=== PATIENT | male | born 1965 | race Caucasian/White ===

== ENCOUNTER 2017-03-11 07:36 | Emergency (ER) | payer MEDICAID, OTHER ==
[2017-03-11] MEDS ORDERED: HYDROmorphone* 1 MG/ML 1 ML SYR IV ONE (08:04)
[2017-03-11] MEDS ORDERED: NS 0.9% 1000 ML* 2,000 ML IV ONE (08:04)
[2017-03-11] MEDS ORDERED: LORazepam INJ* 2 MG/ML 1 ML VIAL IV PUSH ONE (08:09)
--- NOTE | 2017-03-11 09:08 | RAD ---
HISTORY: Left arm pain and swelling COMPARISONS: None VIEWS: 4, Frontal internal rotation, external rotation, outlet, and axillary views of the left shoulder FINDINGS: BONE DENSITY: Normal. BONES: There is no displaced fracture. JOINTS: There is no arthropathy. ALIGNMENT: There is no dislocation. SOFT TISSUES: Unremarkable. OTHER FINDINGS: None. IMPRESSION: NO ACUTE OSSEOUS INJURY. IF SYMPTOMS PERSIST, RECOMMEND REPEAT IMAGING.
--- NOTE | 2017-03-11 09:09 | RAD ---
INDICATION: Left elbow pain. Chest ecchymosis. Left chest wall injury. COMPARISON: May 13, 2015 TECHNIQUE: PA and lateral dual-energy views were obtained. FINDINGS: Bones/Soft Tissues: There are no acute bony findings. Cardiomediastinal: The cardiomediastinal silhouette is normal. Lungs: There are no infiltrates. Pleura: There are no pleural effusions. Other: None IMPRESSION: NO ACTIVE DISEASE.
--- NOTE | 2017-03-11 09:10 | RAD ---
HISTORY: Painful, swollen left elbow COMPARISONS: None VIEWS: 3, Frontal, lateral, and oblique views of the left elbow FINDINGS: BONE DENSITY: Normal. BONES: There is no displaced fracture. JOINTS: There is no arthropathy. There is no posterior supracondylar fat pad to suggest a joint effusion. ALIGNMENT: There is no dislocation. SOFT TISSUES: Unremarkable. OTHER FINDINGS: None. IMPRESSION: NO ACUTE OSSEOUS INJURY. IF SYMPTOMS PERSIST, RECOMMEND REPEAT IMAGING.
--- NOTE | 2017-03-11 09:11 | RAD ---
HISTORY: Left arm pain and swelling COMPARISONS: None VIEWS: 2, Frontal and lateral views of the left forearm FINDINGS: BONE DENSITY: Normal. BONES: There is no displaced fracture. JOINTS: There is no arthropathy. ALIGNMENT: There is no dislocation. SOFT TISSUES: Unremarkable. OTHER FINDINGS: None. IMPRESSION: NO ACUTE OSSEOUS INJURY. IF SYMPTOMS PERSIST, RECOMMEND REPEAT IMAGING.
--- NOTE | 2017-03-11 09:11 | RAD ---
HISTORY: Left arm pain and swelling COMPARISONS: None VIEWS: 2, Frontal internal rotation and external rotation views of the left humerus FINDINGS: BONE DENSITY: Normal. BONES: There is no displaced fracture. JOINTS: There is no arthropathy. ALIGNMENT: There is no dislocation. SOFT TISSUES: Unremarkable. OTHER FINDINGS: None. IMPRESSION: NO ACUTE OSSEOUS INJURY. IF SYMPTOMS PERSIST, RECOMMEND REPEAT IMAGING.
[2017-03-11 09:19] LABS: Hematocrit 32 % (42-52); Hemoglobin 10.6 g/dl (14.0-18.0); Mean Corpuscular HGB Conc 34 g/dl (31-36); Mean Corpuscular Hemoglobin 34 pg (27-31); Mean Corpuscular Volume 103 fL (80-94); Mean Platelet Volume 8 um3 (7.4-10.4); Red Blood Count 3.07 10^6/ul (4.0-5.4); Red Cell Distribution Width 15 % (10.5-15); White Blood Count 4.7 10^3/ul (3.5-10.8)
[2017-03-11 09:20] LABS: Comments Flag Yes
[2017-03-11 09:23] LABS: Add Diff/Slide Review? Slide Review Added
[2017-03-11 09:31] LABS: Albumin 3.7 g/dL (3.2-5.2); C Reactive Protein 1.29 mg/L (< 5.00); Calcium 8.7 mg/dL (8.6-10.3); EGFR African American 205.5 (>60); EGFR Non-African American 159.8 (>60); Globulin 4.7 g/dL (2-4); Potassium 3.9 mmol/L (3.5-5.0); Total Bilirubin 2.8 mg/dL (0.2-1.0); Total Protein 8.4 g/dL (6.4-8.9)
[2017-03-11] MEDS ORDERED: HYDROmorphone* 1 MG/ML 1 ML SYR IV SLOW PU ONE (09:57)
--- NOTE | 2017-03-11 10:32 | RAD ---
HISTORY: Left upper extremity swelling COMPARISONS: None relevant TECHNIQUE: Multiple transverse and longitudinal ultrasound images were obtained of the left upper extremity from the level of the internal jugular vein inferiorly through to the infra-cubital veins using grayscale, color Doppler, and spectral Doppler imaging with and without compression and with augmentation. Comparison images were obtained of the contralateral internal jugular vein and subclavian vein. FINDINGS: The study was limited by patient pain and inability to tolerate examination. VEINS: The venous system of the left upper extremity is compressible throughout its course, with normal flow on color Doppler imaging and normal response to augmentation on spectral Doppler imaging. SOFT TISSUES: There is a large heterogeneously hyperechoic fluid collection of the proximal left arm consistent with large hematoma measuring approximately 11.5 x 4.2 x 5.3 cm in size. OTHER FINDINGS: Arterial flow is noted within the left brachial artery. IMPRESSION: 1. NO LEFT UPPER EXTREMITY DEEP VEIN THROMBOSIS. 2. LARGE HEMATOMA OF THE PROXIMAL LEFT ARM
[2017-03-11 12:45] LABS: Erythrocyte Sed Rate 62 mm/Hr (0-20)
[2017-03-11 14:30] VITALS: BP 101/61
[2017-03-11] MEDS ORDERED: HYDROcodone/ACETAMIN 5-325 MG* 1 TAB PO ONE (15:13)
--- NOTE | 2017-03-11 15:48 | ED ---
Montez Massey Auryana, scribed for John Carrillo MD on 03/11/17 at 0811 . Upper Extremity Pain - HPI Summary HPI Summary: 51 year old male presents with LUE pain starting this morning. He states that his left arm is also swollen, numb (thumb and index finger on left arm), and has ecchymosis. He states that the pain is constant but then becomes much worse intermittently. He reports that he doesn't know what happened. He denies any chest pain or recent falls. He denies any recent falls. Patient is right handed. His last drink was a few days ago. PMHx is significant for IVDA ( "years ago"). Social history is significant for tobacco and alcohol abuse but denies any drug use. - History of Current Complaint Chief Complaint: EDExtremityUpper Stated Complaint: LT ARM PAIN Time Seen by Provider: 03/11/17 07:53 Hx Obtained From: Patient Mechanism Of Injury: Unknown Onset/Duration: Started Hours Ago - this morning, Still Present Timing: Constant Severity Initially: Mild Severity Currently: Mild Pain Location: Arm - left Aggravating Factor(s): Movement Associated Signs & Symptoms: Positive: Swelling, Bruising, Numbness/Tingling Related History: Dominant Hand Right - Allergies/Home Medications Allergies/Adverse Reactions: Allergies Allergy/AdvReac Type Severity Reaction Status Date / Time No Known Allergies Allergy Verified 12/27/15 17:04 PMH/Surg Hx/FS Hx/Imm Hx Endocrine/Hematology History: Denies: Hx Diabetes Cardiovascular History: Denies: Hx Congestive Heart Failure, Hx Hypertension Respiratory History: Reports: Hx Pneumonia GI History: Reports: Other GI Disorders - abdominal trauma Denies: Hx Cirrhosis, Hx Crohn's Disease, Hx Diverticulosis, Hx Gall Bladder Disease, Hx Gastroesophageal Reflux Disease, Hx Gastrointestinal Bleed, Hx Hiatal Hernia, Hx Irritable Bowel, Hx Jaundice, Hx Obstructive Bowel, Hx Ileostomy, Hx Pyloric Stenosis, Hx Ulcer History: Denies: Hx Renal Disease Sensory History: Reports: Hx Contacts or Glasses - reading Opthamlomology History: Reports: Hx Contacts or Glasses - reading Neurological History: Reports: Hx Seizures - 2-3 seizures in the past year Psychiatric History: Reports: Hx Anxiety, Hx Depression, Hx Panic Disorder, Hx Inpatient Treatment, Hx Community Mental Health Tx, Hx Suicide Attempt Denies: Hx Attention Deficit Hyperactivity Disorder, Hx Eating Disorder, Hx Post Traumatic Stress Disorder, Hx Schizophrenia, Hx Bipolar Disorder, Hx of Violent Episodes Against Others, Other Psychiatric Issues/Disorders Comment Only: Hx Substance Abuse - etoh - Surgical History Surgery Procedure, Year, and Place: Bladder repair 1999' Hx Anesthesia Reactions: No Infectious Disease History: No Infectious Disease History: Reports: Hx Hepatitis, History Other Infectious Disease - Hep C Denies: Hx Clostridium Difficile, Hx Human Immunodeficiency Virus (HIV), Hx of Known/Suspected MRSA, Hx Shingles, Hx Tuberculosis, Hx Known/Suspected VRE, Hx Known/Suspected VRSA, Traveled Outside the [place] in Last 30 Days - Family History Known Family History: Positive: Unknown, Diabetes - Social History Occupation: Unemployed Lives: Alone Alcohol Use: Daily Alcohol Amount: states 4-6 shots every 2-3 hours Hx Substance Use: No - states not IVDA recently Substance Use Type: Reports: Heroin Substance Use Comment - Amount & Last Used: uses suboxone Hx Tobacco Use: Yes Smoking Status (MU): Heavy Every Day Tobacco Smoker Type: Cigarettes Have You Smoked in the Last Year: Yes Review of Systems Constitutional: Negative Negative: Fever Eyes: Negative ENT: Negative Cardiovascular: Negative Respiratory: Negative Gastrointestinal: Negative Genitourinary: Negative Positive: Myalgia - left arm , Decreased ROM - with pain - left arm , Edema - left arm Positive: Bruising - of the left arm ecchymosis Positive: Weakness - motor weakness of left arm Psychological: Normal All Other Systems Reviewed And Are Negative: Yes Physical Exam - Summary Physical Exam Summary: PE smells etoh The patient is well-nourished in no acute distress. Smells of ETOH. The skin is warm and dry and skin color reflects adequate perfusion. HEENT: The head is normocephalic and atraumatic- no evidence of head trauma, moeller signs or raccoon signs. The pupils are equal and reactive. The conjunctivae are clear and without drainage. Nares are patent and without drainage. Mouth reveals moist mucous membranes and the throat is without erythema and exudate. The external ears are intact. The internal ears were not visualized. Neck is supple with full range of motion and non-tender. There are no carotid bruits. There is no neck vein distension. Respiratory: Chest is non-tender. Lungs are clear to auscultation and breath sounds are symmetrical and equal. Cardiovascular: Heart is regular rate and rhythm. There is no murmur or rub auscultated. There is no peripheral edema and pulses are symmetrical and equal. Abdomen: The abdomen is soft and non-tender. There are normal bowel sounds heard in all four quadrants and there is no organomegaly palpated. Musculoskeletal: There is no back pain noted. Lower extremities are non-tender with full range of motion. There is good capillary refill. There is no peripheral edema or calf tenderness elicited. Pain with rotation of the wrist. Marked eccyhmosis on the radial aspect of the left arm extending from the mid forearm to the axilla. Tender to palpation with good pulses distally. Decreased movement of fingers of the left arm but no motor weakness noted - good capillary refill. Pain with pronation and supination of elbow but no reproducible pain at radial head. Full ROM at the left shoulder. No reproducible pain with percussion of olecranon. Neurological: Patient is alert and oriented to person, place and time. The patient has symmetrical motor strength in all four extremities. Cranial nerves are grossly intact. Deep tendon reflexes are symmetrical and equal in all four extremities. Psychiatric: The patient has an appropriate affect and does not exhibit any anxiety or depression. Triage Information Reviewed: Yes Vital Signs On Initial Exam: Initial Vitals Temp Pulse Resp BP Pulse Ox 99.0 F 79 20 132/83 92 03/11/17 07:45 03/11/17 07:45 03/11/17 07:45 03/11/17 07:45 03/11/17 07:45 Vital Signs Reviewed: Yes Diagnostics - Vital Signs Vital Signs Temp Pulse Resp BP Pulse Ox 03/11/17 07:51 99.0 F 84 16 132/83 94 03/11/17 07:45 99.0 F 79 20 132/83 92 - Laboratory Lab Results: Lab Results 03/11/17 03/11/17 03/11/17 Range/Units 09:05 09:05 09:05 WBC 4.7 (3.5-10.8) 10^3/ul RBC 3.07 L (4.0-5.4) 10^6/ul Hgb 10.6 L (14.0-18.0) g/dl Hct 32 L (42-52) % MCV 103 H (80-94) fL MCH 34 H (27-31) pg MCHC 34 (31-36) g/dl RDW 15 (10.5-15) % Plt Count 86 L (150-450) 10^3/ul MPV 8 (7.4-10.4) um3 Neut % (Auto) 44.7 (38-83) % Lymph % (Auto) 35.9 (25-47) % [place] % (Auto) 14.6 H (1-9) % Eos % (Auto) 2.7 (0-6) % Baso % (Auto) 2.1 H (0-2) % Absolute Neuts (auto) 2.1 (1.5-7.7) 10^3/ul Absolute Lymphs (auto) 1.7 (1.0-4.8) 10^3/ul Absolute Monos (auto) 0.7 (0-0.8) 10^3/ul Absolute Eos (auto) 0.1 (0-0.6) 10^3/ul Absolute Basos (auto) 0.1 (0-0.2) 10^3/ul Absolute Nucleated RBC 0 10^3/ul Nucleated RBC % 0.1 ESR 62 H (0-20) mm/Hr Hem Pathologist Commnt Pending INR (Anticoag Therapy) 1.29 H (0.89-1.11) Sodium 132 L (133-145) mmol/L Potassium 3.9 (3.5-5.0) mmol/L Chloride 100 L (101-111) mmol/L Carbon Dioxide 26 (22-32) mmol/L Anion Gap 6 (2-11) mmol/L BUN 7 (6-24) mg/dL Creatinine 0.54 L (0.67-1.17) mg/dL Est GFR ( Amer) 205.5 (>60) Est GFR (Non-Af Amer) 159.8 (>60) BUN/Creatinine Ratio 13.0 (8-20) Glucose 113 H (70-100) mg/dL Lactic Acid (0.5-2.0) mmol/L Calcium 8.7 (8.6-10.3) mg/dL Total Bilirubin 2.80 H (0.2-1.0) mg/dL AST 113 H (13-39) U/L ALT 30 (7-52) U/L Alkaline Phosphatase 120 H (34-104) U/L C-Reactive Protein 1.29 (< 5.00) mg/L Total Protein 8.4 (6.4-8.9) g/dL Albumin 3.7 (3.2-5.2) g/dL Globulin 4.7 H (2-4) g/dL Albumin/Globulin Ratio 0.8 L (1-3) Serum Alcohol 347 H (<10) mg/dL 03/11/17 Range/Units 09:05 WBC (3.5-10.8) 10^3/ul RBC (4.0-5.4) 10^6/ul Hgb (14.0-18.0) g/dl Hct (42-52) % MCV (80-94) fL MCH (27-31) pg MCHC (31-36) g/dl RDW (10.5-15) % Plt Count (150-450) 10^3/ul MPV (7.4-10.4) um3 Neut % (Auto) (38-83) % Lymph % (Auto) (25-47) % [place] % (Auto) (1-9) % Eos % (Auto) (0-6) % Baso % (Auto) (0-2) % Absolute Neuts (auto) (1.5-7.7) 10^3/ul Absolute Lymphs (auto) (1.0-4.8) 10^3/ul Absolute Monos (auto) (0-0.8) 10^3/ul Absolute Eos (auto) (0-0.6) 10^3/ul Absolute Basos (auto) (0-0.2) 10^3/ul Absolute Nucleated RBC 10^3/ul Nucleated RBC % ESR (0-20) mm/Hr Hem Pathologist Commnt INR (Anticoag Therapy) (0.89-1.11) Sodium (133-145) mmol/L Potassium (3.5-5.0) mmol/L Chloride (101-111) mmol/L Carbon Dioxide (22-32) mmol/L Anion Gap (2-11) mmol/L BUN (6-24) mg/dL Creatinine (0.67-1.17) mg/dL Est GFR ( Amer) (>60) Est GFR (Non-Af Amer) (>60) BUN/Creatinine Ratio (8-20) Glucose (70-100) mg/dL Lactic Acid 1.4 (0.5-2.0) mmol/L Calcium (8.6-10.3) mg/dL Total Bilirubin (0.2-1.0) mg/dL AST (13-39) U/L ALT (7-52) U/L Alkaline Phosphatase (34-104) U/L C-Reactive Protein (< 5.00) mg/L Total Protein (6.4-8.9) g/dL Albumin (3.2-5.2) g/dL Globulin (2-4) g/dL Albumin/Globulin Ratio (1-3) Serum Alcohol (<10) mg/dL Result Diagrams: 03/11/17 09:05 03/11/17 09:05 Lab Statement: Any lab studies that have been ordered have been reviewed, and results considered in the medical decision making process. - Radiology CXR Xray Interpretation: No Acute Changes Radiology Interpretation Completed By: Radiologist LEFT ELBOW XR Xray Interpretation: No Acute Changes Radiology Interpretation Completed By: Radiologist FOREARM XR Xray Interpretation: No Acute Changes Radiology Interpretation Completed By: Radiologist HUMERUS LEFT Xray Interpretation: No Acute Changes Radiology Interpretation Completed By: Radiologist LEFT SHOULDER Xray Interpretation: No Acute Changes Radiology Interpretation Completed By: Radiologist - Additional Comments Diagnostic Additional Comments: VL UPPER EXT VEIN DOPPLER LEFT IMPRESSION: 1. NO LEFT UPPER EXTREMITY DEEP VEIN THROMBOSIS. 2. LARGE HEMATOMA OF THE PROXIMAL LEFT ARM Re-Evaluation - Re-Evaluation First Eval Re-Evaluation Time: 14:58 - discussed imaging, labs and plan of action Change: Unchanged Course/Dx - Course Assessment/Plan: 51 year old male presents with LUE pain starting this morning. He states that his left arm is also swollen, numb (thumb and index finger on left arm), and ecchymosis of the left arm. He reports that he doesn't know what happened. He denies any chest pain or recent falls. He denies any recent falls. Hie States last drink was a few days ago. PMHx is significant for IVDA ( "years ago"). Social history is significant for tobacco and alcohol abuse but denies any drug use. LABS: serum ETOH - 347, elevatd INR, and liver enzymes. All X-RAYS are negative. Venous doppler of left arm - shows large hematoma without DVT. Will discharge patient with PCP follow up, R.I.C.E. therapy and pain medication. DX:left arm contusion and alcohol intoxication - Diagnoses Differential Diagnosis/HQI/PQRI: Positive: Fracture (Closed), Hematoma, Other - dislocation, alcohol abuse Provider Diagnoses: Contusion of left arm, Alcohol intoxication Discharge - Discharge Plan Condition: Stable Disposition: HOME Prescriptions: HYDROcodone/ACETAMIN 5-325 MG* [[place] 5-325 TAB*] 1 tab PO Q6H PRN #20 tab MDD 4 PRN Reason: pain Patient Education Materials: Alcohol Intoxication (ED), Contusion in Adults (ED ), RICE Therapy (ED), Narcotic Pain Management (ED) Referrals: Leroy Vega MD [Primary Care Provider] - 3 Days The documentation as recorded by the Montez borjas Auryana accurately reflects the service I personally performed and the decisions made by me, John Carrillo MD.
== END 2017-03-11 15:39 | disposition home or self-care (01) ==
LOC: ED 07:36
DX: S40.022A Contusion of left upper arm, initial encounter (principal); F10.129 Alcohol abuse with intoxication, unspecified; Y90.8 Blood alcohol level of 240 mg/100 ml or more; F17.210 Nicotine dependence, cigarettes, uncomplicated; X58.XXXA Exposure to other specified factors, initial encounter; Y92.9 Unspecified place or not applicable
CPT/HCPCS: 36415; 71020; 80053; 80320; 83605; 85025; 85060; 85610; 85652; 86140; 96374; 96375; 99284; G0480; J1170; J2060

== ENCOUNTER → 2017-03-12 14:24 | Emergency (ER) | payer OTHER ==
[~2017-03-12 14:24] MED LIST: Iohexol 350* (CONTRAST) 500 ML MDV IV ONE
[2017-03-12 16:16] LABS: Hematocrit 26 % (42-52); Hemoglobin 8.9 g/dl (14.0-18.0); Mean Corpuscular HGB Conc 34 g/dl (31-36); Mean Corpuscular Hemoglobin 35 pg (27-31); Mean Corpuscular Volume 103 fL (80-94); Mean Platelet Volume 8 um3 (7.4-10.4); Red Blood Count 2.55 10^6/ul (4.0-5.4); Red Cell Distribution Width 15 % (10.5-15); White Blood Count 5.4 10^3/ul (3.5-10.8)
[2017-03-12 16:17] LABS: Comments Flag Yes
[2017-03-12 16:33] LABS: Albumin 3.5 g/dL (3.2-5.2); BUN/Creatinine Ratio 9.4 (8-20); Calcium 8.6 mg/dL (8.6-10.3); EGFR Non-African American 163.3 (>60); Globulin 4.2 g/dL (2-4); Potassium 3.7 mmol/L (3.5-5.0); Total Bilirubin 2.8 mg/dL (0.2-1.0); Total Protein 7.7 g/dL (6.4-8.9)
--- NOTE | 2017-03-12 17:56 | RAD ---
INDICATION: Hematoma left upper gravity. History of IV drug abuse. COMPARISON: Comparison is made with a prior ultrasound of the left upper extremity from March 11, 2017. TECHNIQUE: A CT angiogram of the left upper extremity was performed with intravenous following intravenous injection of 100 ml of Omnipaque 350 nonionic contrast. Contiguous axial sections were obtained beginning above the shoulder and extending through the hand. FINDINGS: There is soft tissue swelling throughout the left upper extremity noted in the subcutaneous tissues. In addition adjacent to the proximal humerus and extending into the left axilla in the deep soft tissues there is a poorly defined mildly hyperdense mass which blends in with the adjacent muscles most consistent with a hematoma. This is better visualized on the prior ultrasound study although measures approximately 4.4 x 4.5 x 10.4 cm. There is no gross evidence for active bleeding. In addition there appears be occlusion or high-grade stenosis of the brachial artery at the level of the midhumerus which is then reconstituted immediately below this area. No significant focal osseous abnormality is seen. The results of this exam were discussed with the referring clinician. IMPRESSION: 1. POORLY DEFINED AREA OF INCREASED DENSITY IN THE PROXIMAL LEFT ARM AND AXILLA MOST CONSISTENT WITH A HEMATOMA. THIS IS BETTER VISUALIZED ON THE PRIOR ULTRASOUND STUDY. 2. 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 RECOMMEND CLINICAL CORRELATION AND CONSIDER VASCULAR SURGICAL REFERRAL.
--- NOTE | 2017-03-12 19:07 | ED ---
Ghada Massey Matthew, scribed for Estrada Marie MD on 03/12/17 at 1603 . Upper Extremity Pain - HPI Summary HPI Summary: A 51 y/o male presents to the ED with left upper arm pain since 5 days ago. There is no known injury and he denies falling. Associated symptoms include ecchymosis and swelling. He was at [facility] yesterday for a similar pain, where an US and lab results were taken. He states something "inside his body collapsed", but he is unable to identified a definite timeline stating that he doesn't remember. However, he states that pain continues to worsen. The pain is worse with ambulation and states that he's unable to care for himself at home. The patient last took Suboxone 2 days ago. Hx of Hep C and substance abuse. - History of Current Complaint Chief Complaint: EDGeneral Stated Complaint: PAIN IN UPPER BODY Time Seen by Provider: 03/12/17 15:34 Hx Obtained From: Patient Onset/Duration: Started Days Ago - 5, Atraumatic, Still Present Timing: Constant Severity Initially: Moderate Severity Currently: Moderate Pain Location: Arm - LT Aggravating Factor(s): Movement Alleviating Factor(s): Nothing Associated Signs & Symptoms: Positive: Swelling, Bruising - Allergies/Home Medications Allergies/Adverse Reactions: Allergies Allergy/AdvReac Type Severity Reaction Status Date / Time No Known Allergies Allergy Verified 12/27/15 17:04 PMH/Surg Hx/FS Hx/Imm Hx Endocrine/Hematology History: Denies: Hx Diabetes Cardiovascular History: Denies: Hx Congestive Heart Failure, Hx Hypertension Respiratory History: Reports: Hx Pneumonia GI History: Reports: Other GI Disorders - abdominal trauma Denies: Hx Cirrhosis, Hx Crohn's Disease, Hx Diverticulosis, Hx Gall Bladder Disease, Hx Gastroesophageal Reflux Disease, Hx Gastrointestinal Bleed, Hx Hiatal Hernia, Hx Irritable Bowel, Hx Jaundice, Hx Obstructive Bowel, Hx Ileostomy, Hx Pyloric Stenosis, Hx Ulcer History: Denies: Hx Renal Disease Sensory History: Reports: Hx Contacts or Glasses - reading Opthamlomology History: Reports: Hx Contacts or Glasses - reading Neurological History: Reports: Hx Seizures - 2-3 seizures in the past year Psychiatric History: Reports: Hx Anxiety, Hx Depression, Hx Panic Disorder, Hx Inpatient Treatment, Hx Community Mental Health Tx, Hx Suicide Attempt Denies: Hx Attention Deficit Hyperactivity Disorder, Hx Eating Disorder, Hx Post Traumatic Stress Disorder, Hx Schizophrenia, Hx Bipolar Disorder, Hx of Violent Episodes Against Others, Other Psychiatric Issues/Disorders Comment Only: Hx Substance Abuse - etoh - Surgical History Surgery Procedure, Year, and Place: Bladder repair Hx Anesthesia Reactions: No Infectious Disease History: Yes Infectious Disease History: Reports: Hx Hepatitis, History Other Infectious Disease - Hep C Denies: Hx Clostridium Difficile, Hx Human Immunodeficiency Virus (HIV), Hx of Known/Suspected MRSA, Hx Shingles, Hx Tuberculosis, Hx Known/Suspected VRE, Hx Known/Suspected VRSA, Traveled Outside the [place] in Last 30 Days - Family History Known Family History: Positive: Diabetes - Social History Alcohol Use: Daily Alcohol Amount: states 4-6 shots every 2-3 hours Hx Substance Use: No - states not IVDA recently Substance Use Type: Reports: Heroin Substance Use Comment - Amount & Last Used: uses suboxone Hx Tobacco Use: Yes Smoking Status (MU): Heavy Every Day Tobacco Smoker Type: Cigarettes Have You Smoked in the Last Year: Yes Review of Systems Constitutional: Negative Eyes: Negative ENT: Negative Cardiovascular: Negative Respiratory: Negative Gastrointestinal: Negative Genitourinary: Negative Positive: Myalgia - left upper arm pain, Edema - swelling of the left arm Positive: Bruising - left upper arm Neurological: Negative Psychological: Normal All Other Systems Reviewed And Are Negative: Yes Physical Exam Triage Information Reviewed: Yes Vital Signs On Initial Exam: Initial Vitals Temp Pulse Resp BP Pulse Ox 97.8 F 63 18 114/71 100 03/12/17 14:30 03/12/17 14:30 03/12/17 14:30 03/12/17 14:30 03/12/17 14:30 Vital Signs Reviewed: Yes Appearance: Positive: No Pain Distress Skin: Positive: Warm, Skin Color Reflects Adequate Perfusion, Dry Head/Face: Positive: Normal Head/Face Inspection Eyes: Positive: Normal ENT: Positive: Normal ENT inspection Neck: Positive: Supple, Nontender Respiratory/Lung Sounds: Positive: Clear to Auscultation, Breath Sounds Present Cardiovascular: Positive: RRR Abdomen Description: Positive: Nontender, Soft Bowel Sounds: Positive: Present Musculoskeletal: Positive: Strength/ROM Intact Neurological: Positive: Alert, Oriented to Person Place, Time Psychiatric: Positive: Affect/Mood Appropriate - Price Coma Scale Coma Scale Total: 15 Diagnostics - Vital Signs Vital Signs Temp Pulse Resp BP Pulse Ox 03/12/17 15:12 98.7 F 60 24 121/76 94 03/12/17 14:30 97.8 F 63 18 114/71 100 - Laboratory Lab Results: Lab Results 03/12/17 03/12/17 03/12/17 Range/Units 16:09 16:09 16:09 WBC 5.4 (3.5-10.8) 10^3/ul RBC 2.55 L (4.0-5.4) 10^6/ul Hgb 8.9 L (14.0-18.0) g/dl Hct 26 L (42-52) % MCV 103 H (80-94) fL MCH 35 H (27-31) pg MCHC 34 (31-36) g/dl RDW 15 (10.5-15) % Plt Count 83 L (150-450) 10^3/ul MPV 8 (7.4-10.4) um3 Neut % (Auto) 43.7 (38-83) % Lymph % (Auto) 37.9 (25-47) % [place] % (Auto) 14.0 H (1-9) % Eos % (Auto) 2.8 (0-6) % Baso % (Auto) 1.6 (0-2) % Absolute Neuts (auto) 2.4 (1.5-7.7) 10^3/ul Absolute Lymphs (auto) 2.1 (1.0-4.8) 10^3/ul Absolute Monos (auto) 0.8 (0-0.8) 10^3/ul Absolute Eos (auto) 0.2 (0-0.6) 10^3/ul Absolute Basos (auto) 0.1 (0-0.2) 10^3/ul Absolute Nucleated RBC 0.01 10^3/ul Nucleated RBC % 0.2 INR (Anticoag Therapy) 1.28 H (0.89-1.11) APTT 35.4 (26.0-36.3) seconds Sodium 136 (133-145) mmol/L Potassium 3.7 (3.5-5.0) mmol/L Chloride 104 (101-111) mmol/L Carbon Dioxide 27 (22-32) mmol/L Anion Gap 5 (2-11) mmol/L BUN 5 L (6-24) mg/dL Creatinine 0.53 L (0.67-1.17) mg/dL Est GFR ( Amer) 210.0 (>60) Est GFR (Non-Af Amer) 163.3 (>60) BUN/Creatinine Ratio 9.4 (8-20) Glucose 108 H (70-100) mg/dL Calcium 8.6 (8.6-10.3) mg/dL Total Bilirubin 2.80 H (0.2-1.0) mg/dL AST 119 H (13-39) U/L ALT 31 (7-52) U/L Alkaline Phosphatase 91 (34-104) U/L Total Protein 7.7 (6.4-8.9) g/dL Albumin 3.5 (3.2-5.2) g/dL Globulin 4.2 H (2-4) g/dL Albumin/Globulin Ratio 0.8 L (1-3) Serum Alcohol 264 H (<10) mg/dL Result Diagrams: 03/12/17 16:09 03/12/17 16:09 Lab Statement: Any lab studies that have been ordered have been reviewed, and results considered in the medical decision making process. - CT CTA Left Upper Extremity CT Interpretation: Positive (See Comments) - IMPRESSION: 1. POORLY DEFINED AREA OF INCREASED DENSITY IN THE PROXIMAL LEFT ARM AND AXILLA MOST CONSISTENT WITH A HEMATOMA. THIS IS BETTER VISUALIZED ON THE PRIOR ULTRASOUND STUDY. 2. 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 RECOMMEND CLINICAL CORRELATION AND CONSIDER VASCULAR SURGICAL REFERRAL. CT Interpretation Completed By: Radiologist Course/Dx - Course Course Of Treatment: Mr. Padilla has decreased pulses in his left arm but a normal cap refill. His CTA shows a likely dissection of the brachial artery. As we have no vascular surgeons, I will transfer him to [facility] for further evaluation. He has dropped his H&H since yesterday but is stable at this time. - Diagnoses Provider Diagnoses: Brachial artery occlusion, left - Physician Notifications Discussed Care Of Patient With: Dr. Murillo ([facility] ED) at 18:44 -- Notified of patient's history and accepts transfer of the patient. - Critical Care Time Critical Care Time: 30-74 min Discharge - Discharge Plan Condition: Stable Disposition: TRANS HIGHER LVL OF CARE FAC Discharge Disposition Comment: Needs vascular sugery Referrals: Leroy Vega MD [Primary Care Provider] - The documentation as recorded by the Ghada borjas Matthew accurately reflects the service I personally performed and the decisions made by me, Estrada Marie MD.
[2017-03-12 20:19] VITALS: BP 118/68
== END | disposition short-term general hospital (02) ==
LOC: ED 14:24
DX: I74.2 Embolism and thrombosis of arteries of the upper extremities (principal); F17.210 Nicotine dependence, cigarettes, uncomplicated; R60.0 Localized edema
CPT/HCPCS: 36415; 80053; 80320; 85025; 85610; 85730; 99284; G0480; Q9967

== ENCOUNTER 2017-04-06 12:26 | Emergency (ER) | payer OTHER ==
[2017-04-06] MEDS ORDERED: HYDROmorphone* 1 MG/ML 1 ML SYR IV ONE (13:44)
[2017-04-06] MEDS: NS 0.9% 1000 ML* 2,000 ML IV ONE (13:55)
[2017-04-06 14:06] LABS: Hematocrit 32 % (42-52); Hemoglobin 10.7 g/dl (14.0-18.0); Mean Corpuscular HGB Conc 34 g/dl (31-36); Mean Corpuscular Hemoglobin 37 pg (27-31); Mean Platelet Volume 9 um3 (7.4-10.4); Red Blood Count 2.89 10^6/ul (4.0-5.4); Red Cell Distribution Width 16 % (10.5-15); White Blood Count 3.5 10^3/ul (3.5-10.8)
[2017-04-06 14:21] LABS: ALT 22 U/L (7-52); AST 79 U/L (13-39); Albumin 3.6 g/dL (3.2-5.2); Alkaline Phosphatase 65 U/L (34-104); Anion Gap 7 mmol/L (2-11); BUN/Creatinine Ratio 15.9 (8-20); Blood Urea Nitrogen 11 mg/dL (6-24); C Reactive Protein 1.04 mg/L (< 5.00); CO2 Carbon Dioxide 24 mmol/L (22-32); Calcium 9.3 mg/dL (8.6-10.3); Chloride 97 mmol/L (101-111); EGFR African American 154.9 (>60); EGFR Non-African American 120.4 (>60); Globulin 4.6 g/dL (2-4); Glucose 104 mg/dL (70-100); Lipase 29 U/L (11.0-82.0); Magnesium 1.7 mg/dL (1.9-2.7); Potassium 3.6 mmol/L (3.5-5.0); Sodium 128 mmol/L (133-145); Total Protein 8.2 g/dL (6.4-8.9)
[2017-04-06] MEDS ORDERED: Iohexol 300* (CONTRAST) 10 ML SDV IV ONE (14:25)
[2017-04-06 14:42] LABS: Alcohol < 10 mg/dL (<10)
[2017-04-06] MEDS ORDERED: HYDROmorphone* 1 MG/ML 1 ML SYR IV SLOW PU ONE ×3 (14:45→17:40)
[2017-04-06 14:57] LABS: Comments Flag Yes
[2017-04-06 14:58] LABS: Add Diff/Slide Review? Slide Review Added; Mean Corpuscular Volume 109 fL (80-94)
[2017-04-06 15:16] LABS: Macrocytosis 2+; Polychromasia 1+
[2017-04-06 15:36] LABS: Urine Bacteria Absent (Absent); Urine Bilirubin Negative (Negative); Urine Glucose Negative (Negative); Urine Nitrite Negative (Negative)
--- NOTE | 2017-04-06 16:02 | RAD ---
Indication: Hematoma left flank with left lower quadrant pain. Contrast: Administered 91.0 ml of OMNIPAQUE 300 mg/ml CT of the abdomen and pelvis was performed after IV contrast administration. Coronal and sagittal reconstructed images were obtained. Lung bases demonstrate pleural thickening in the left lung base with pleural-based calcifications. Findings are similar to that seen on 12-16. The heart demonstrates no pericardial effusion. Liver is normal in size. No focal lesions or intrahepatic duct dilatation is noted. The gallbladder and straight no calcified gallstones. No pericholecystic fluid is identified. The spleen measures up to 12 cm. This is at the upper limits of normal. The pancreas demonstrates no mass effect or ductal dilatation. The common duct is not dilated. No adrenal lesions are noted. The kidneys demonstrate symmetric nephrograms. Bilateral excretion is noted without hydronephrosis. Aorta and inferior vena cava are unremarkable. No definite retroperitoneal adenopathy is noted. CT of the pelvis demonstrates no pelvic adenopathy. Urinary bladder is unremarkable. No hernias are noted. Small bowel and colon demonstrates no abnormal dilatation. Fluid is noted in the colon. No definite retroperitoneal hematoma is noted. The bony structures are otherwise unremarkable. IMPRESSION: No evidence of bowel obstruction No retroperitoneal hematoma is noted. Left pleural thickening with pleural calcifications. Trace amount of ascites is noted.
--- NOTE | 2017-04-06 16:25 | RAD ---
INDICATION: Soft tissue injury, hematoma. COMPARISON: Comparison is made with a prior CT angiogram of the left upper extremity from March 12, 2017. TECHNIQUE: Contiguous axial sections were obtained of the left upper gravity. Images were reconstructed in the sagittal and coronal planes. FINDINGS: There is a large hypodense mass present in the mid and proximal left arm adjacent to the humerus extending into the left axilla. This has increased in size and measures 13.6 x 6.8 x 7.1 cm and previously measured 10.4 x 5.8 x 5.6 cm. This was noted to previously represent a hematoma. No fracture or significant focal osseous abnormality is seen. There is a small infiltrate in the left lower lobe. No pleural effusion is seen. The spleen appears mildly enlarged. IMPRESSION: 1. THERE IS A HEMATOMA IN THE LEFT ARM EXTENDING INTO THE LEFT AXILLA WHICH HAS INCREASED IN SIZE. THE POSSIBILITY OF AN INFECTED HEMATOMA CANNOT BE EXCLUDED. 2. SMALL LEFT LOWER LOBE INFILTRATE. 3. SPLENOMEGALY.
[2017-04-06] MEDS ORDERED: Phytonadione Oral Solution* 5 MG/25 ML UDC PO ONE (17:46)
[2017-04-06 18:06] LABS: Creatine Kinase 91 U/L (10-223)
[2017-04-06 18:32] VITALS: BP 150/84
--- NOTE | 2017-04-06 18:38 | ED ---
angela Massey Timothy, scribed for John Carrillo MD on 04/06/17 at 1326 . Upper Extremity Pain - HPI Summary HPI Summary: Marcos Padilla is a 51 yo male presenting to [facility] with 9/10 left arm pain for the past 3 weeks. He presented to [facility] upon onset of the pain 3 weeks ago and was sent to [facility] for a vascular consult. He states he did not have any surgery done, and has not followed up with any doctors. He states that he did not have his pain medication prescription filled. He denies any known trauma. He states the pain increases with movement or flexion/extension. He states he is also worried because his left arm is starting to feel hard. He states he has had chills and cough last night. Per triage, Pt's left arm is swollen, tender to palpation, and the left elbow is warm to the touch. He denies any IV drug use in the past 6 years. His MHx includes seizure, PNA, abdominal trauma, Hepatits C, panic disorder, depression, anxiety, IVDA, EtOH abuse, suicide attempt, and tobacco use. - History of Current Complaint Chief Complaint: EDExtremityUpper Stated Complaint: ARM PAIN Time Seen by Provider: 04/06/17 13:27 Hx Obtained From: Patient Mechanism Of Injury: Unknown Onset/Duration: Started Weeks Ago, Still Present Timing: Constant Severity Initially: Moderate Severity Currently: Moderate Pain Location: Arm Aggravating Factor(s): Movement, Flexion, Extension Associated Signs & Symptoms: Positive: Swelling, Other - chills, cough - Allergies/Home Medications Allergies/Adverse Reactions: Allergies Allergy/AdvReac Type Severity Reaction Status Date / Time No Known Allergies Allergy Verified 12/27/15 17:04 Home Medications: Home Medications NK [No Home Medications Reported] 04/06/17 [History Confirmed 04/06/17] PMH/Surg Hx/FS Hx/Imm Hx Endocrine/Hematology History: Denies: Hx Diabetes Cardiovascular History: Denies: Hx Congestive Heart Failure, Hx Hypertension Respiratory History: Reports: Hx Pneumonia GI History: Reports: Other GI Disorders - abdominal trauma Denies: Hx Cirrhosis, Hx Crohn's Disease, Hx Diverticulosis, Hx Gall Bladder Disease, Hx Gastroesophageal Reflux Disease, Hx Gastrointestinal Bleed, Hx Hiatal Hernia, Hx Irritable Bowel, Hx Jaundice, Hx Obstructive Bowel, Hx Ileostomy, Hx Pyloric Stenosis, Hx Ulcer History: Denies: Hx Renal Disease Sensory History: Reports: Hx Contacts or Glasses - reading Opthamlomology History: Reports: Hx Contacts or Glasses - reading Neurological History: Reports: Hx Seizures - 2-3 seizures in the past year Psychiatric History: Reports: Hx Anxiety, Hx Depression, Hx Panic Disorder, Hx Inpatient Treatment, Hx Community Mental Health Tx, Hx Suicide Attempt Denies: Hx Attention Deficit Hyperactivity Disorder, Hx Eating Disorder, Hx Post Traumatic Stress Disorder, Hx Schizophrenia, Hx Bipolar Disorder, Hx of Violent Episodes Against Others, Other Psychiatric Issues/Disorders Comment Only: Hx Substance Abuse - etoh - Surgical History Surgery Procedure, Year, and Place: Bladder repair Hx Anesthesia Reactions: No - Immunization History Date of Tetanus Vaccine: UTD Date of Influenza Vaccine: NO Infectious Disease History: No Infectious Disease History: Reports: Hx Hepatitis, History Other Infectious Disease - Hep C Denies: Hx Clostridium Difficile, Hx Human Immunodeficiency Virus (HIV), Hx of Known/Suspected MRSA, Hx Shingles, Hx Tuberculosis, Hx Known/Suspected VRE, Hx Known/Suspected VRSA, Traveled Outside the [place] in Last 30 Days - Family History Known Family History: Positive: Cardiac Disease, Hypertension, Diabetes, Other - bipolar disorder, EtOH abuse Negative: Blood Disorder - no clotting d/o - Social History Alcohol Use: Daily Alcohol Amount: states 4-6 shots every 2-3 hours Hx Substance Use: No - states not IVDA recently Substance Use Type: Reports: Heroin Substance Use Comment - Amount & Last Used: uses suboxone Hx Tobacco Use: Yes Smoking Status (MU): Heavy Every Day Tobacco Smoker Type: Cigarettes Have You Smoked in the Last Year: Yes Review of Systems Positive: Chills Eyes: Negative ENT: Negative Cardiovascular: Negative Positive: Cough Gastrointestinal: Negative Genitourinary: Negative Positive: Other - left arm pain, swelling, warmth at elbow Skin: Negative Neurological: Negative Psychological: Normal All Other Systems Reviewed And Are Negative: Yes Physical Exam - Summary Physical Exam Summary: The patient is well-nourished in no acute distress and in mild pain distress. The skin is warm and diaphoretic and skin color reflects adequate perfusion. HEENT: The head is normocephalic and atraumatic. The pupils are equal and reactive. The conjunctivae are clear and without drainage. Nares are patent and without drainage. Mouth reveals moist mucous membranes and the throat is without erythema and exudate. The external ears are intact. The ear canals are patent and without drainage. The tympanic membranes are intact. Neck is supple with full range of motion and non-tender. There are no carotid bruits. There is no neck vein distension. Respiratory: Chest is non-tender. Lungs are clear to auscultation and breath sounds are symmetrical and equal. Cardiovascular: Heart is regular rate and rhythm. There is no murmur or rub auscultated. There is no peripheral edema and pulses are symmetrical and equal. Abdomen: The abdomen is soft and non-tender. There are normal bowel sounds heard in all four quadrants and there is no organomegaly palpated. Musculoskeletal: There is no back pain noted. There is no edema in the lower extremities. Exam focused on the LUE revealing large tense area of most likely a hematoma extending from his mid forearm to his proximal humerus. The area is markedly edematous and ecchymotic in various stages of healing, and is not warm to the touch. Pt is unable to extend his left elbow, but can supinate and pronate. There is good capillary refill. There are good radial/ulnar pulses. Neurological: Patient is alert and oriented to person, place and time. The patient has symmetrical motor strength in all four extremities. Cranial nerves are grossly intact. Deep tendon reflexes are symmetrical and equal in all four extremities. Psychiatric: The patient has an appropriate affect and does not exhibit any anxiety or depression. Triage Information Reviewed: Yes Vital Signs On Initial Exam: Initial Vitals Temp Pulse Resp BP Pulse Ox 100.4 F 90 18 155/83 100 04/06/17 12:31 04/06/17 12:31 04/06/17 12:31 04/06/17 12:31 04/06/17 12:31 Vital Signs Reviewed: Yes - [place] Coma Scale Coma Scale Total: 15 Diagnostics - Vital Signs Vital Signs Temp Pulse Resp BP Pulse Ox 04/06/17 12:31 100.4 F 90 18 155/83 100 - Laboratory Lab Results: Lab Results 04/06/17 04/06/17 04/06/17 Range/Units 13:48 13:48 13:48 WBC 3.5 (3.5-10.8) 10^3/ul RBC 2.89 L (4.0-5.4) 10^6/ul Hgb 10.7 L (14.0-18.0) g/dl Hct 32 L (42-52) % MCV 109 H (80-94) fL MCH 37 H (27-31) pg MCHC 34 (31-36) g/dl RDW 16 H (10.5-15) % Plt Count 56 L (150-450) 10^3/ul MPV 9 (7.4-10.4) um3 Neut % (Auto) 57.1 (38-83) % Lymph % (Auto) 22.0 L (25-47) % [place] % (Auto) 18.1 H (1-9) % Eos % (Auto) 1.8 (0-6) % Baso % (Auto) 1.0 (0-2) % Absolute Neuts (auto) 2.0 (1.5-7.7) 10^3/ul Absolute Lymphs (auto) 0.8 L (1.0-4.8) 10^3/ul Absolute Monos (auto) 0.6 (0-0.8) 10^3/ul Absolute Eos (auto) 0.1 (0-0.6) 10^3/ul Absolute Basos (auto) 0 (0-0.2) 10^3/ul Absolute Nucleated RBC 0.01 10^3/ul Nucleated RBC % 0.2 Normal RBC Morphology Not Reportable Polychromasia 1+ Macrocytosis 2+ INR (Anticoag Therapy) 1.56 H (0.89-1.11) APTT 36.2 (26.0-36.3) seconds Sodium 128 L (133-145) mmol/L Potassium 3.6 (3.5-5.0) mmol/L Chloride 97 L (101-111) mmol/L Carbon Dioxide 24 (22-32) mmol/L Anion Gap 7 (2-11) mmol/L BUN 11 (6-24) mg/dL Creatinine 0.69 (0.67-1.17) mg/dL Est GFR ( Amer) 154.9 (>60) Est GFR (Non-Af Amer) 120.4 (>60) BUN/Creatinine Ratio 15.9 (8-20) Glucose 104 H (70-100) mg/dL Lactic Acid (0.5-2.0) mmol/L Calcium 9.3 (8.6-10.3) mg/dL Magnesium 1.7 L (1.9-2.7) mg/dL Total Bilirubin 6.90 H (0.2-1.0) mg/dL AST 79 H (13-39) U/L ALT 22 (7-52) U/L Alkaline Phosphatase 65 (34-104) U/L Ammonia (16-53) mol/L Total Creatine Kinase 91 (10-223) U/L C-Reactive Protein 1.04 (< 5.00) mg/L Total Protein 8.2 (6.4-8.9) g/dL Albumin 3.6 (3.2-5.2) g/dL Globulin 4.6 H (2-4) g/dL Albumin/Globulin Ratio 0.8 L (1-3) Lipase 29 (11.0-82.0) U/L Urine Color Urine Appearance Urine pH (5-9) Ur Specific Corn (1.010-1.030) Urine Protein (Negative) Urine Ketones (Negative) Urine Blood (Negative) Urine Nitrate (Negative) Urine Bilirubin (Negative) Urine Urobilinogen (Negative) Ur Leukocyte Esterase (Negative) Urine WBC (Auto) (Absent) Urine RBC (Auto) (Absent) Urine Bacteria (Absent) Urine Glucose (Negative) Serum Alcohol < 10 (<10) mg/dL 04/06/17 04/06/17 04/06/17 Range/Units 13:48 13:48 15:15 WBC (3.5-10.8) 10^3/ul RBC (4.0-5.4) 10^6/ul Hgb (14.0-18.0) g/dl Hct (42-52) % MCV (80-94) fL MCH (27-31) pg MCHC (31-36) g/dl RDW (10.5-15) % Plt Count (150-450) 10^3/ul MPV (7.4-10.4) um3 Neut % (Auto) (38-83) % Lymph % (Auto) (25-47) % [place] % (Auto) (1-9) % Eos % (Auto) (0-6) % Baso % (Auto) (0-2) % Absolute Neuts (auto) (1.5-7.7) 10^3/ul Absolute Lymphs (auto) (1.0-4.8) 10^3/ul Absolute Monos (auto) (0-0.8) 10^3/ul Absolute Eos (auto) (0-0.6) 10^3/ul Absolute Basos (auto) (0-0.2) 10^3/ul Absolute Nucleated RBC 10^3/ul Nucleated RBC % Normal RBC Morphology Polychromasia Macrocytosis INR (Anticoag Therapy) (0.89-1.11) APTT (26.0-36.3) seconds Sodium (133-145) mmol/L Potassium (3.5-5.0) mmol/L Chloride (101-111) mmol/L Carbon Dioxide (22-32) mmol/L Anion Gap (2-11) mmol/L BUN (6-24) mg/dL Creatinine (0.67-1.17) mg/dL Est GFR ( Amer) (>60) Est GFR (Non-Af Amer) (>60) BUN/Creatinine Ratio (8-20) Glucose (70-100) mg/dL Lactic Acid 0.9 (0.5-2.0) mmol/L Calcium (8.6-10.3) mg/dL Magnesium (1.9-2.7) mg/dL Total Bilirubin (0.2-1.0) mg/dL AST (13-39) U/L ALT (7-52) U/L Alkaline Phosphatase (34-104) U/L Ammonia 56 H (16-53) mol/L Total Creatine Kinase (10-223) U/L C-Reactive Protein (< 5.00) mg/L Total Protein (6.4-8.9) g/dL Albumin (3.2-5.2) g/dL Globulin (2-4) g/dL Albumin/Globulin Ratio (1-3) Lipase (11.0-82.0) U/L Urine Color Yellow Urine Appearance Clear Urine pH 6.0 (5-9) Ur Specific Corn 1.006 L (1.010-1.030) Urine Protein Negative (Negative) Urine Ketones Negative (Negative) Urine Blood 1+ H (Negative) Urine Nitrate Negative (Negative) Urine Bilirubin Negative (Negative) Urine Urobilinogen Positive H (Negative) Ur Leukocyte Esterase Negative (Negative) Urine WBC (Auto) Absent (Absent) Urine RBC (Auto) Trace(0-2/hpf) (Absent) Urine Bacteria Absent (Absent) Urine Glucose Negative (Negative) Serum Alcohol (<10) mg/dL Result Diagrams: 04/06/17 13:48 04/06/17 13:48 Lab Statement: Any lab studies that have been ordered have been reviewed, and results considered in the medical decision making process. - CT A/P CT Interpretation: No Acute Changes - IMPRESSION: No evidence of bowel obstruction No retroperitoneal hematoma is noted. Left pleural thickening with pleural calcifications. Trace amount of ascites is noted. CT Interpretation Completed By: Radiologist LUE CT Interpretation: Positive (See Comments) - IMPRESSION: 1. THERE IS A HEMATOMA IN THE LEFT ARM EXTENDING INTO THE LEFT AXILLA WHICH HAS INCREASED IN SIZE. THE POSSIBILITY OF AN INFECTED HEMATOMA CANNOT BE EXCLUDED. 2. SMALL LEFT LOWER LOBE INFILTRATE. 3. SPLENOMEGALY. CT Interpretation Completed By: Radiologist Re-Evaluation - Re-Evaluation First Eval Re-Evaluation Time: 13:39 Change: Unchanged Comment: Large areas of ecchynosis on his left flank and LLQ in various stages of healing, not as well defined as the area on his LUE. Second Eval Re-Evaluation Time: 17:03 Change: Unchanged Comment: Reviewed lab and imaging studies with Pt. Pt would prefer to not be discharged, and would like to be admitted. Course/Dx - Course Assessment/Plan: Marcos Padilla is a 51 yo male presenting to [facility] with 9/10 pain in his left arm for the past 3 weeks, seen by [facility] 3 weeks ago and transferred to [facility] for a vascular surgeon consult. CTA in [facility] 3 weeks ago suggested possibility of a dissection which is why he was transferred to a facility for higher level of care. His medication list is reviewed this visit, as were his previous medical records, including his last two ED visits. In the ED course he received dilaudid for pain management oral Vitamin K solution, and IV fluids. Medical records were obtained from [facility] and were reviewed. His CT A/P suggests left pleural thickening with pleural calcifications and trace amount of ascites. His LUE CT suggests hematoa in the LUE extending to the left axilla which has increased in size, without exclusion of the possibility of infection. There is also small left lower lobe infiltrate and splenomegaly. Hospitalist consult at 1800 revealed that hospitalist team consulted with ortho regarding drainage of Pt's hematoma, and ortho was not comfortable performing surgery at [facility] unless hospitalist team had platelets available if needed to control his bleeding due to his hypercoaguable state. Due to the lack of platelets at [facility], Pt will be transferred to [facility] for drainage of his hematoma. 1818 - Dr. Soto ([facility]) - discussed Pt condition, accepts Pt for transfer - Diagnoses Differential Diagnosis/HQI/PQRI: Positive: Fracture (Closed), Hematoma, Other - compartment syndrome, thrombocytopenia, hypercoagable state, alcoholic abuse Provider Diagnoses: left upper extremity hematoma, Thrombocytopenia, Hypercoagulable state, History of alcohol abuse - Physician Notifications Discussed Care of Patient With: Sarahi Jauregui - Discussed Pt condition, he will be evaluated by a hospitalist team. Time Discussed With Above Provider: 17:08 - Critical Care Time Critical Care Time: 30-74 min - 30 minutes Discharge - Discharge Plan Condition: Stable Disposition: TRANS HIGHER LVL OF CARE FAC Discharge Disposition Comment: transfer for treatment of hematoma, thrombocytopenia, hypercoaguable state Referrals: Leroy Vega MD [Primary Care Provider] - The documentation as recorded by the angela borjas Timothy accurately reflects the service I personally performed and the decisions made by me, John Carrillo MD.
--- NOTE | 2017-04-06 21:29 | CONS ---
CONSULTATION REPORT: DATE OF CONSULT: 04/06/17 - EMERGENCY DEPT PRIMARY CARE PROVIDER: None. ATTENDING PHYSICIAN WHILE IN THE HOSPITAL: Mando Fox MD (report dictated by Guilherme Cruz NP). CHIEF COMPLAINT: Left upper extremity pain. HISTORY OF PRESENT ILLNESS: Mr. Padilla is a 51-year-old male patient who has a history of cirrhosis, hepatitis C, history of IV heroin abuse and he is still actively drinking. He was here about 3 weeks ago. He came in for an unresponsive episode. While here in the ER, it was noted that he had extensive swelling and bruising of the left upper extremity, got worse in front of the ER provider's eyes. They did some imaging here. There was concern for a brachial artery dissection. He went to [facility]. This was ruled out with a Duplex as they saw distal and proximal flow. There was concern up there at [facility] for brachial plexus injury. He was supposed to follow up with an EMG and MRI with Neurology and Vascular Surgery. The patient did not. He went to home from [place] and he says he continued to drink alcohol. He says he only drank a couple of times, but he was continuing to drink nonetheless. He says his pain and swelling has gotten worse over the last few days. He is unsure if he had trauma to the extremity again or if he hit it again on anything, but he was concerned because the pain was getting worse and worse and he was having worsening movement of his fingers, worsening numbness and tingling of his hand as well. So, he came into the ER today. Despite 4 mg of IV Dilaudid, he is still having a significant 10/10 pain with any type of movement. He denied any fevers or chills, although he had a low-grade fever here. He denied any chest pain or any shortness of breath. He denied having any abdominal pain or nausea or vomiting. He was concerned. He came in, was evaluated by Dr. Carrillo. There was concern for possible infected hematoma and pain and we were asked to evaluate for admission. PAST MEDICAL HISTORY: Significant for: 1. Cirrhosis. 2. Hepatitis C. 3. IV heroin use. PAST SURGICAL HISTORY: He has had bladder reconstruction. MEDICATIONS: Home meds were denied. ALLERGIES TO MEDICATIONS: Include no known drug allergies. FAMILY HISTORY: His mother had an aneurysm. Father's history reviewed and noncontributory. SOCIAL HISTORY: He is a 2 pack a day smoker for about 25 years. He does drinks alcohol almost on a daily basis, although he says that he only drank a couple times since discharge from [facility]. He does not have a surrogate decision maker. REVIEW OF SYSTEMS: There is a low grade fever here of 100.4. He denied having any significant weight change. There was no double vision. He denies having any ear discharge. There is no rhinorrhea. There is no sore throat, no thyroid enlargement. Denied having any chest pain. There is no orthopnea. No nocturnal dyspnea. There is no abdominal pain. There was no nausea. No vomiting. No dysuria. No frequency. No seizure. No loss of consciousness. No pruritus. No skin ulcerations. Review of 14 systems completed, all others negative. PHYSICAL EXAMINATION: Vital Signs: Blood pressure 135/81, pulse 74, respirations 20, O2 sat 98%, temperature 100.4. General: At this time, Mr. Padilla is a 51-year- old male patient. He is chronically ill-appearing. He is sitting in the ER stretcher. He does appear to be in significant amount of pain. HEENT: Head is atraumatic, normocephalic. Eyes: EOMs are intact. Sclerae were noted to be yellow. Neck: Supple. Throat: Oral mucosa appears to be dry. No oropharyngeal erythema. Heart: Sounds S1, S2. Regular rate and rhythm. No murmurs, rubs, or gallops. Lungs were clear to auscultation bilaterally. No wheezes, rales, or rhonchi. Abdomen was soft, flat, nontender. Bowel sounds present. Extremities: He did have 2+ pulses bilateral to the upper extremities. The left upper extremity, he was unable to make a fist. He had swelling to his fingers. He had numbness to the fifth finger and numbness to the fourth finger and starting to his hand as well. He also had some ecchymosis noted from just above the elbow all the way up almost to the shoulder and the biceps area there. It was extremely tensed and taut and very painful with minimal palpation. Neurologically, he is awake, alert, oriented x3. Tongue midline. [employer] were equal. No gross focal deficits. Skin is intact. LABORATORY DATA/DIAGNOSTIC STUDIES: Labs today revealed WBC of 3.5, RBC of 2.89 , hemoglobin of 10.7, hematocrit of 32, platelet count 02432. INR of 1.56. PTT of 36.2. Sodium was 128, potassium 3.6, chloride of 97, bicarb 24, BUN 11, creatinine 0.69, glucose of 104, lactic 0.9, calcium 9.3, mag 1.7, total bili 6.9, AST 72, ALT 22, ammonia 56, lipase 29. Urine showed a low specific gravity. Positive urobilinogen. Serum alcohol was negative. He had an upper extremity CT obtained today, which showed there is a hematoma in the left arm extending into the left axilla, which has increased in size. Possibility of infected hematoma cannot be excluded. Small left lower lobe infiltrate and splenomegaly. He had a CT of the abdomen, which showed no evidence of bowel obstruction. No retroperitoneal hematoma is noted. Left pleural thickening with pleural calcification and trace amount of ascites. Old medical records were reviewed. I did review the [facility] record. ASSESSMENT AND PLAN: Mr. Padilla is a 51-year-old male patient coming to the ER today with complaints of worsening left upper extremity pain. On evaluation, he was found to have increasing hematoma. We were asked to evaluate for admission. My recommendations at this point are: Left lower extremity hematoma. There may be a suspicion of infection certainly , but I would go ahead and treat this with IV antibiotics, which I believe given the low-grade fever, although, it is less likely because he no white count and the CRP is normal. My bigger concern though is this patient has a significant amount of pain. He is unable to make a fist. He has extreme pain to palpation. I did touch base with our orthopedic surgeon training and development professional, Dr. Florentino, and I felt that this hematoma needs to be evacuated. Unfortunately, though he is a high risk surgical patient because of the fact of his coagulopathy, I am concerned that if we were to instrument the hematoma that we may not be able to control the bleeding safely here. I felt that and as did Dr. Florentino if she did not have our backup that he should be transferred to a facility that would be more equipped to handle this should we run into any issues. In addition to this , the patient does have significant liver dysfunction as evidenced by his elevated INR and low platelets. We do not have GI coverage. We may need their backup, which we do not have here tonight. Because of his high risk and the fact that this needed to be evacuated, we felt that he would be safe tertiary care center. So, at this point, we deemed him to transfer to [facility] back to where he came from previous evaluation. I did discuss this with Dr. Carrillo and he was in agreement as well. For his history of cirrhosis, hepatitis C, and IV heroin use, again I will continue with supportive care. At this point, I will replace with magnesium and again for further evaluation and care, I will transfer him to [facility]. I did touch base care with my attending, Dr. Fox, who is in agreement as well. GUILHERME CRUZ, FLOR [id number]/CPS #: [id number] [email or web address]
== END 2017-04-06 19:32 | disposition short-term general hospital (02) ==
LOC: ED 12:26
DX: M79.81 Nontraumatic hematoma of soft tissue (principal); D69.6 Thrombocytopenia, unspecified; D68.59 Other primary thrombophilia; R91.8 Other nonspecific abnormal finding of lung field; F10.21 Alcohol dependence, in remission; R68.83 Chills (without fever); R05 Cough; F41.9 Anxiety disorder, unspecified; F32.9 Major depressive disorder, single episode, unspecified; F17.210 Nicotine dependence, cigarettes, uncomplicated
CPT/HCPCS: 36415; 74177; 80053; 80320; 81003; 81015; 82140; 82550; 83605; 83690; 83735; 85025; 85610; 85730; 86140; 87040; 96361; 96374; 96375; 99285; G0480; J1170; Q9967

== ENCOUNTER 2017-05-18 13:31 | Emergency (ER) | payer OTHER ==
--- NOTE | 2017-05-18 17:33 | RAD ---
HISTORY: Left upper extremity swelling COMPARISONS: CT dated April 06, 2017 TECHNIQUE: Multiple transverse and longitudinal ultrasound images were obtained of the left upper extremity from the level of the internal jugular vein inferiorly through to the infra-cubital veins using grayscale, color Doppler, and spectral Doppler imaging with and without compression and with augmentation. Comparison images were obtained of the contralateral internal jugular vein and subclavian vein. FINDINGS: VEINS: Evaluation of the brachial veins is limited secondary to postsurgical change The venous system of the left upper extremity is compressible throughout its course, with normal flow on color Doppler imaging and normal response to augmentation on spectral Doppler imaging. SOFT TISSUES: There is a loculated fluid collection within the left axilla measuring 2.8 x 1.6 x 1.6 cm in size. This corresponds to the finding noted on previous CT, but has decreased in size. OTHER FINDINGS: None. IMPRESSION: 1. NO LEFT UPPER EXTREMITY DEEP VEIN THROMBOSIS. 2. LEFT AXILLARY FLUID COLLECTION CORRESPONDING TO THE PREVIOUSLY DESCRIBED HEMATOMA, DECREASED IN SIZE
[2017-05-18 17:45] VITALS: BP 140/82
--- NOTE | 2017-05-18 21:08 | ED ---
Mayo Massey Alok, scribed for Estrada Marie MD on 05/18/17 at 1419 . Upper Extremity Pain - HPI Summary HPI Summary: 52M presents to the ED for left upper extremity pain/swelling. Pt states that his upper extremity pain has been constant for the last 2 months and states having 2 circulatory surgeries since in [place]. Pt notes limited ROM in LUE and is unable to make a fist. Pt drinks ETOH. - History of Current Complaint Chief Complaint: EDExtremityUpper Stated Complaint: LT ARM PAIN/SWELLING/FINGER NUMBNESS Time Seen by Provider: 05/18/17 14:07 Hx Obtained From: Patient Onset/Duration: Started Weeks Ago, Still Present Timing: Constant Severity Initially: Moderate Severity Currently: Moderate Pain Location: Arm Aggravating Factor(s): Movement Alleviating Factor(s): Nothing Associated Signs & Symptoms: Positive: Swelling - Allergies/Home Medications Allergies/Adverse Reactions: Allergies Allergy/AdvReac Type Severity Reaction Status Date / Time No Known Allergies Allergy Verified 12/27/15 17:04 PMH/Surg Hx/FS Hx/Imm Hx Endocrine/Hematology History: Denies: Hx Diabetes Cardiovascular History: Denies: Hx Congestive Heart Failure, Hx Hypertension Respiratory History: Reports: Hx Pneumonia GI History: Reports: Other GI Disorders - abdominal trauma Denies: Hx Cirrhosis, Hx Crohn's Disease, Hx Diverticulosis, Hx Gall Bladder Disease, Hx Gastroesophageal Reflux Disease, Hx Gastrointestinal Bleed, Hx Hiatal Hernia, Hx Irritable Bowel, Hx Jaundice, Hx Obstructive Bowel, Hx Ileostomy, Hx Pyloric Stenosis, Hx Ulcer History: Denies: Hx Renal Disease Sensory History: Reports: Hx Contacts or Glasses - reading Opthamlomology History: Reports: Hx Contacts or Glasses - reading Neurological History: Reports: Hx Seizures - 2-3 seizures in the past year Psychiatric History: Reports: Hx Anxiety, Hx Depression, Hx Panic Disorder, Hx Inpatient Treatment, Hx Community Mental Health Tx, Hx Suicide Attempt Denies: Hx Attention Deficit Hyperactivity Disorder, Hx Eating Disorder, Hx Post Traumatic Stress Disorder, Hx Schizophrenia, Hx Bipolar Disorder, Hx of Violent Episodes Against Others, Other Psychiatric Issues/Disorders Comment Only: Hx Substance Abuse - etoh - Surgical History Surgery Procedure, Year, and Place: Bladder repair Hx Anesthesia Reactions: No - Immunization History Date of Tetanus Vaccine: UTD Date of Influenza Vaccine: NO Infectious Disease History: Yes Infectious Disease History: Reports: Hx Hepatitis, History Other Infectious Disease - Hep C Denies: Hx Clostridium Difficile, Hx Human Immunodeficiency Virus (HIV), Hx of Known/Suspected MRSA, Hx Shingles, Hx Tuberculosis, Hx Known/Suspected VRE, Hx Known/Suspected VRSA, Traveled Outside the [place] in Last 30 Days - Family History Known Family History: Positive: Cardiac Disease, Hypertension, Diabetes, Other - bipolar disorder, EtOH abuse Negative: Blood Disorder - no clotting d/o - Social History Occupation: Unemployed Lives: With Family Alcohol Use: Daily Alcohol Amount: 12 pack of beer daily Hx Substance Use: No - states not IVDA recently Substance Use Type: Reports: Heroin, Marijuana Substance Use Comment - Amount & Last Used: uses suboxone Hx Tobacco Use: Yes Smoking Status (MU): Heavy Every Day Tobacco Smoker Type: Cigarettes Have You Smoked in the Last Year: Yes Review of Systems Negative: Fever Positive: Edema, Other - upper extremity pain All Other Systems Reviewed And Are Negative: Yes Physical Exam Triage Information Reviewed: Yes Vital Signs On Initial Exam: Initial Vitals Temp Pulse Resp BP Pulse Ox 99.1 F 106 20 156/88 95 05/18/17 13:36 05/18/17 13:36 05/18/17 13:36 05/18/17 13:36 05/18/17 13:36 Vital Signs Reviewed: Yes Appearance: Positive: Well-Appearing, No Pain Distress Skin: Positive: Warm, Skin Color Reflects Adequate Perfusion, Dry Head/Face: Positive: Normal Head/Face Inspection Eyes: Positive: Normal ENT: Positive: Normal ENT inspection Neck: Positive: Supple, Nontender Respiratory/Lung Sounds: Positive: Clear to Auscultation, Breath Sounds Present Cardiovascular: Positive: RRR Abdomen Description: Positive: Nontender, Soft Bowel Sounds: Positive: Present Musculoskeletal: Positive: Other - Left upper extremity wound looks well- healed. 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 Neurological: Positive: Normal Psychiatric: Positive: Normal, Affect/Mood Appropriate - Price Coma Scale Coma Scale Total: 15 Diagnostics - Vital Signs Vital Signs Temp Pulse Resp BP Pulse Ox 05/18/17 14:12 90 96 05/18/17 14:03 99.5 F 91 18 139/84 94 05/18/17 13:36 99.1 F 106 20 156/88 95 - Laboratory Lab Statement: Any lab studies that have been ordered have been reviewed, and results considered in the medical decision making process. - Additional Comments Diagnostic Additional Comments: Upper extremity veins US - IMPRESSION: 1. NO LEFT UPPER EXTREMITY DEEP VEIN THROMBOSIS. 2. LEFT AXILLARY FLUID COLLECTION CORRESPONDING TO THE PREVIOUSLY DESCRIBED HEMATOMA, DECREASED IN SIZE Course/Dx - Course Course Of Treatment: Mr. Padilla presented with the C/O that he still could not use his left hand. He has had two surgeries in [place]/[facility] for a hematoma in his left axilla. His latest was about 5 weeks ago and he was supposed to have PT but has not at this point. He comes in because he is not better and he denies any recent change in his condition to repeated and varied types of questioning. He is not febrile and his vitals are OK. He was reported to be jaundiced on his last visit but I cannot appreciate jaundice or icterus at this time. I spoke with Dr. Harrison at [facility] who was his surgeon and he was willing to follow up with the patient and recommended that he also have PT. The patient doesn't want to go to [place] and I tried to get him an appointment for their clinic on this Tuesday but they have no room. I recommended that he contact Dr. Christy DE OLIVEIRA for an appointment and to get referred to PT. A doppler was negative for DVT. - Diagnoses Provider Diagnoses: Hematoma of left axilla Discharge - Discharge Plan Condition: Stable Disposition: HOME Referrals: Dale Harrison MD [Medical Doctor] - Additional Instructions: Please follow up with Dr. Harrison for an appointment to be seen in the [place] office and get a referral for physical therapy as soon as possible The documentation as recorded by the Mayo borjas Alok accurately reflects the service I personally performed and the decisions made by me, Estrada Marie MD.
== END 2017-05-18 18:04 | disposition home or self-care (01) ==
LOC: ED 13:31
DX: M79.81 Nontraumatic hematoma of soft tissue (principal); M79.622 Pain in left upper arm; R22.9 Localized swelling, mass and lump, unspecified
CPT/HCPCS: 99282

== ENCOUNTER 2017-07-26 14:42 | Inpatient (IN) | payer OTHER ==
[2017-07-26 16:02] LABS: Hematocrit 29 % (42-52); Hemoglobin 9.9 g/dl (14.0-18.0); Mean Corpuscular HGB Conc 34 g/dl (31-36); Mean Corpuscular Hemoglobin 34 pg (27-31); Mean Corpuscular Volume 98 fL (80-94); Mean Platelet Volume 9 um3 (7.4-10.4); Red Blood Count 2.94 10^6/ul (4.0-5.4); Red Cell Distribution Width 18 % (10.5-15); White Blood Count 9.1 10^3/ul (3.5-10.8)
[2017-07-26] MEDS ORDERED: NS 0.9% 1000 ML* 1,000 ML IV ONE ×2 (16:03→17:30)
[2017-07-26 16:04] LABS: Add Diff/Slide Review? Slide Review Added; Comments Flag Yes
--- NOTE | 2017-07-26 16:04 | RAD ---
Indication: Confusion, neck injury. CT of the cervical spine was obtained in the axial plane. Sagittal and coronal reconstructed images were obtained. The skull base demonstrates no evidence of fracture. Mastoid air cells are unremarkable. The C1 ring is intact. The vertebral bodies appear normal in height. No evidence of fracture is noted. At C2-C3 and C3-C4 no disc protrusion is noted. No central or foraminal stenosis Minimal spondylosis is noted at C4-C5 with bilateral uncovertebral joint hypertrophy. At C5-C6 degenerative disc disease with bilateral uncovertebral joint hypertrophy is noted slightly narrowing both foramen. At C6-C7, broad-based protrusion flattens the thecal sac. Bilateral uncovertebral hypertrophy narrows both intervertebral foramen. At C7-T1 disc space appears unremarkable. IMPRESSION: DEGENERATIVE DISC DISEASE AT C4-C5, C5-C6 AND C6-C7 WITH BILATERAL UNCOVERTEBRAL JOINT HYPERTROPHY WITH MILD FORAMINAL STENOSIS AT THESE LEVELS. NO FRACTURE OF THE CERVICAL SPINE IS OTHERWISE NOTED.
--- NOTE | 2017-07-26 16:11 | RAD ---
indication: Mouth bleeding in a patient with signs of alcohol abuse. COMPARISON: CT of the brain dated December 28, [address] scan of the brain and and maxillofacial bones was performed without intravenous contrast enhancement. Contiguous axial sections were obtained from the lower cervical spine through the cranial vertex. BRAIN: The ventricles, cisterns and sulci are within normal limits. No significant focal abnormality or mass effect is seen. The mendosa-white differentiation is adequately maintained. There is no evidence for intracranial hemorrhage. No significant bony abnormality is present. The mastoid air cells are appropriately aerated. The visualized paranasal sinuses are clear. FACIAL BONES: Bones: There is no displaced fracture or dislocation. The orbital rim is intact. The zygomatic arch is intact. The pterygoid plates are intact Orbits: The globes are round. The optic nerves are symmetric. The extraocular musculature is normal. There is no post septal or intraconal inflammatory change. There is no retrobulbar hematoma. Paranasal Sinuses: The paranasal sinuses are clear. Multiple lucencies and periapical lucencies are seen throughout the remaining teeth. IMPRESSION: 1. No calvarial fracture or acute intracranial hemorrhage. 2. No facial bone fractures. 3. Multiple lucencies are seen throughout the teeth consistent with dental caries. Please correlate to dental exam.
[2017-07-26 16:20] LABS: ALT 57 U/L (7-52); AST 282 U/L (13-39); Alkaline Phosphatase 88 U/L (34-104); Anion Gap 12 mmol/L (2-11); BUN/Creatinine Ratio 12.1 (8-20); Blood Urea Nitrogen 17 mg/dL (6-24); CO2 Carbon Dioxide 23 mmol/L (22-32); Calcium 9.7 mg/dL (8.6-10.3); Chloride 93 mmol/L (101-111); EGFR African American 68.2 (>60); Globulin 5.5 g/dL (2-4); Glucose 120 mg/dL (70-100); Potassium 3.1 mmol/L (3.5-5.0); Sodium 128 mmol/L (133-145); Total Protein 9.5 g/dL (6.4-8.9)
[2017-07-26 16:23] LABS: Troponin I 0.01 ng/mL (<0.04)
[2017-07-26] MEDS ORDERED: LORazepam INJ* 2 MG/ML 1 ML VIAL IV PUSH ONE ×2 (16:45→17:30)
[2017-07-26 17:01] LABS: Alcohol < 10 mg/dL (<10)
[2017-07-26 17:50] LABS: Urine Bacteria Absent (Absent); Urine Bilirubin 1+ (Negative); Urine Glucose Negative (Negative); Urine Nitrite Negative (Negative)
[2017-07-26] MEDS ORDERED: Acetaminophen TAB* 325 MG PO PRN (17:51)
[2017-07-26] MEDS ORDERED: Ondansetron INJ* 2 MG/ML VIAL IV PRN (17:56)
[2017-07-26 18:03] LABS: Benzodiazepine Urine Screen None Detected (None Detect)
[2017-07-26] MEDS: methylPREDNISolone SOD 40 MG* 1 ML VIAL IV SCH (18:24)
[2017-07-26] MEDS: Enoxaparin(*) 40 MG/0.4 ML SYR SUBCUT SCH (18:24)
[2017-07-26] MEDS ORDERED: Thiamine IV* 100 MG, Folic Acid IV* 1 MG, Multiple Vitamin IV ADULT* 10 ML in NS 0.9% 1... IV ONE (18:30)
[2017-07-26] MEDS: LORazepam INJ* 2 MG/ML 1 ML VIAL IV PUSH SCH (20:55)
[2017-07-26] MEDS: Diazepam TAB(*) 10 MG PO SCH (20:57)
[2017-07-26] MEDS: Lactulose* 15 ML UDC PO SCH (21:53)
--- NOTE | 2017-07-26 22:51 | HP ---
CC: Dr. Vega* ADMISSION HISTORY AND PHYSICAL: DATE OF ADMISSION: 07/26/2017. PRIMARY CARE PROVIDER: Dr. Vega. ADMITTING PROVIDER: ANISH Thompson. SUPERVISING PHYSICIAN: Dr. Magy Young* (dictated by ANISH Thompson). HISTORY OF PRESENT ILLNESS: This is a 52-year-old gentleman with a history of alcohol abuse, hepatitis C, depression, polysubstance abuse, and anxiety who presented to the emergency department with complaints of his mouth bleeding. The patient states that he awoke from sleep with his mouth bleeding. The patient at the time of my exam was unable to provide much of a meaningful history, but emergency department and nursing notes outline that the patient's alcohol intake had declined over the preceding few days. In the emergency department, he is impulsive and confused, but at least initially he was able to provide some basic history and orientation questions. The patient does state that he had a few beers earlier today, but his alcohol level is noted to be 0. The patient denies abdominal pain, nausea, vomiting, diarrhea, chest pain, shortness of breath and palpitations. He is unable to state whether he has had any recent acute illness or other precipitating factors. PAST MEDICAL HISTORY: 1. Alcohol abuse. 2. Hepatitis C. 3. Polysubstance abuse. 4. Depression and anxiety. PAST SURGICAL HISTORY: Unknown. HOME MEDICATIONS: None. SOCIAL HISTORY: The patient has a known history of polysubstance abuse, unsure of what his current living situation is. REVIEW OF SYSTEMS: As noted above in HPI, all other systems attempted to be reviewed, but the patient was unable to provide a full history. PHYSICAL EXAMINATION GENERAL: This is a middle aged gentleman, who is unable to answer questions coherently. His speech is slurred and his thoughts are tangential. VITAL SIGNS: Temperature 97.8 degrees Fahrenheit, pulse 115 beats per minute, respiratory rate 16, oxygen saturation 100% on room air and blood pressure 125/ 70 mmHg. HEENT: Head is normocephalic. There is some bleeding coming from his mouth. Upon exam, it looks like he has ulcerations of his tongue. There does not appear to be any acute injury. RESPIRATORY: Lungs are clear to auscultation without wheezes, crackles or rhonchi. CARDIOVASCULAR: Heart has a regular rate and rhythm. Slightly tachycardic. ABDOMEN: Abdomen is soft and seemingly nontender with bowel sounds present. SKIN: The patient is slightly jaundiced with scleral icterus. PSYCH: The patient is alert, but confused and largely incomprehensible. DIAGNOSTIC STUDIES/LAB DATA: CBC shows a white blood cell count of 9100, hemoglobin of 9.9 g/dL and a platelet count of 79,000. INR elevated at 1.74. Comprehensive metabolic panel demonstrates a sodium of 128 mmol/L, potassium 3.1 , bicarb 23, gap of 12, BUN of 17, creatinine of 1.4. Random glucose of 120 mg/ dL. Lactic acid normal at 1.3. Total bilirubin significant elevated at 8.2 with an AST of 282, ALT of 57. Ammonia mildly elevated at 64. Troponin negative at 0.01. Urinalysis shows trace ketones, positive urobilinogen, negative leuk esterase, 2 + white blood cells. Toxicology screen shows positive cannabinoids, negative alcohol and other substances negative. IMAGIN. CT of the brain shows no acute process. 2. Maxillofacial CT shows no fracture. 3. CT of the cervical spine demonstrates degenerative disk disease, but no acute fracture. 4. EKG shows a sinus rhythm with a rate of about 100 beats per minute. ASSESSMENT AND PLAN: This is a 52-year-old gentleman with a known history of alcohol abuse with a negative serum alcohol level who comes in with complaints of mouth bleeding and altered mental status. He has evidence of acute liver failure likely secondary to alcoholic hepatitis. Clinical signs of acute withdrawal. 1. Acute liver failure secondary to alcoholic hepatitis - the patient has evidence of fairly severe failure with a MELD score of 24. Because of this, we will initiate glucocorticoid therapy with 40 of Solu-Medrol daily. The patient' s liver dysfunction certainly has a chronic component to it, but all labs are worse than previously measured. 2. Acute alcohol withdrawal - the patient is tachycardic and tremulous and comes in with injury to his tongue, although this does not appear to be acute. Perhaps that he had a seizure in the last couple of days associated with alcohol withdrawal. We will start WAM protocol with a tapering valium dose. The patient will receive a banana bag in the emergency department and daily multivitamin with folate and thiamine in addition to IV lorazepam according to [facility] protocol. 3. Hepatic encephalopathy - we suspect that most of his altered mental status is related to hepatic encephalopathy. We will start lactulose in addition to treatment for his withdrawal symptoms. 4. Hyponatremia - this is likely due to hypovolemia and he received normal saline in the emergency department. We will repeat in the morning. 5. History of polysubstance abuse - toxicology screen is positive only for marijuana and the patient does not provide a history that he has taken anything else recently. 6. History of depression and anxiety - the patient has not reported any suicidal ideations. 7. History of hepatitis C - unsure of what his treatment history is. 8. Code status is full. 9. DVT prophylaxis. The patient will be started on subcu Lovenox. 10. Healthcare proxy is unknown at this time. DISPOSITION: The patient is being admitted to inpatient status with anticipated length of stay to be greater than 2 midnights. ANISH THOMPSON [id number]/[facility] #: [id number] [place]
[2017-07-27] MEDS: Diazepam TAB(*) 10 MG PO SCH ×3 (02:02→21:36)
[2017-07-27] MEDS: Lactulose* 15 ML UDC PO SCH ×4 (02:02→21:36)
[2017-07-27 09:21] LABS: Comments Flag Yes; Hematocrit 28 % (42-52); Hemoglobin 9.6 g/dl (14.0-18.0); Mean Corpuscular HGB Conc 34 g/dl (31-36); Mean Corpuscular Hemoglobin 34 pg (27-31); Mean Corpuscular Volume 98 fL (80-94); Mean Platelet Volume 8 um3 (7.4-10.4); Red Blood Count 2.85 10^6/ul (4.0-5.4); Red Cell Distribution Width 19 % (10.5-15); White Blood Count 5.8 10^3/ul (3.5-10.8)
[2017-07-27 09:30] LABS: Albumin 3.2 g/dL (3.2-5.2); BUN/Creatinine Ratio 17.1 (8-20); Calcium 8.5 mg/dL (8.6-10.3); EGFR African American 151.7 (>60); Globulin 4.3 g/dL (2-4); Potassium 3.3 mmol/L (3.5-5.0); Total Protein 7.5 g/dL (6.4-8.9)
[2017-07-27] MEDS: Multivitamins/Minerals TAB PO SCH (10:33)
[2017-07-27] MEDS: Folic Acid TAB* 1 MG PO SCH (10:33)
[2017-07-27] MEDS: methylPREDNISolone SOD 40 MG* 1 ML VIAL IV SCH (10:33)
[2017-07-27] MEDS: Thiamine TAB* 100 MG TAB PO SCH (10:34)
[2017-07-27] MEDS: Lidocaine 2% VISCOUS* 15 ML UDC SWISH SPIT SCH ×2 (14:01→16:30)
[2017-07-27] MEDS: LORazepam INJ* 2 MG/ML 1 ML VIAL IV PUSH SCH ×2 (14:21→18:28)
--- NOTE | 2017-07-27 17:23 | PN ---
Subjective Date of Service: 07/27/17 Interval History: This is a 52 yo male with h/o alcoholism and polysubstance abuse who presented with bleeding from his mouth with AMS in ETOH w/d and evidence of worsening liver failure secondary to alcoholic hepatitis. Patient was placed on lactulose , [facility] protocol with tapering diazepam and started on glucocorticoids. This am, patient has not needed additional lorazepam on top of his tapering diazepam. Thoughts seem more organized, less impulsive. He states he remembers some events of yesterday. He denies CP, SOB, abd pain,n/v. His only complaint is tongue pain. Objective Active Medications: Diazepam (Valium Tab(*)) 10 mg PO Q12H [facility] PRN Reason: Taper Stop: 07/29/17 13:59 Last Admin: 07/27/17 11:09 Dose: 10 mg Enoxaparin Sodium (Lovenox(*)) 40 mg SUBCUT Q24H [facility] Last Admin: 07/26/17 18:24 Dose: 40 mg Folic Acid (Folvite Tab*) 1 mg PO DAILY [facility] Last Admin: 07/27/17 10:33 Dose: 1 mg Potassium Chloride 40 meq/ (Lactated Ringer's) 1,020 mls @ 75 mls/hr IVPB Q13H [facility] Stop: 07/28/17 01:59 Last Admin: 07/27/17 14:00 Dose: 75 mls/hr Lactulose (Lactulose*) 15 ml PO TID [facility] Last Admin: 07/27/17 14:11 Dose: 15 ml Lidocaine (Xylocaine 2% Viscous*) 20 ml SWISH SPIT AC [facility] Last Admin: 07/27/17 16:30 Dose: 20 ml Lorazepam (Ativan Inj*) 0 - 3 mg IV PUSH .PER [facility] PROTOCOL [facility] PRN Reason: Protocol Last Admin: 07/27/17 14:21 Dose: 1.5 mg Methylprednisolone Sodium Succinate (Solu-Medrol 40 Mg) 40 mg IV DAILY [facility] Last Admin: 07/27/17 10:33 Dose: 40 mg Multivitamins/Minerals (Theragran/Minerals Tab*) 1 tab PO DAILY [facility] Last Admin: 07/27/17 10:33 Dose: 1 tab Ondansetron HCl (Zofran Inj*) 4 mg IV Q4H PRN PRN Reason: NAUSEA/VOMITING Thiamine HCl (Vitamin B-1 Tab*) 100 mg PO DAILY [facility] Last Admin: 07/27/17 10:34 Dose: 100 mg Vital Signs: Temp Pulse Resp BP Pulse Ox 98.8 F 83 14 123/70 96 07/27/17 16:13 07/27/17 16:13 07/27/17 16:00 07/27/17 16:13 07/27/17 16:13 Appearance: Lethargic, but reponsive and cooperative Ears/Nose/Mouth/Throat: - - evidence of trauma to the tongue that does not appear acute Respiratory: Symmetrical Chest Expansion and Respiratory Effort, Clear to Auscultation Cardiovascular: NL Sounds; No Murmurs; No JVD, RRR Abdominal: NL Sounds; No Tenderness; No Distention Extremities: No Edema Skin: No Rash or Ulcers Neurological: - - alert, did not specifically assess orientation, lethargic Result Diagrams: 07/27/17 08:54 07/27/17 08:54 Additional Lab and Data: Laboratory Tests 07/26/17 07/26/17 07/27/17 15:55 15:58 08:54 INR (Anticoag Therapy) 1.74 H 1.93 H Total Bilirubin 8.20 H 07/27/17 08:54 INR (Anticoag Therapy) Total Bilirubin 6.00 H D Assess/Plan/Problems-Billing Assessment: This is a 52 yo male with h/o alcoholism and polysubstance abuse admitted with alcoholic hepatitis, alcohol withdrawal and alcoholic encephalopathy. - Patient Problems (1) Alcoholic hepatitis Comment: MELD 24 at admission, improved to 21 today Glucocorticoids initiated at admission Plan to cont for total of 28d Noted improvement in Tbili, Cr and transaminases, but slight rise in INR (2) Alcohol withdrawal Comment: Cont WAM protocol with tapering diazepam Suspect w/d seizure at home that lead to his tongue trauma (3) Alcoholic encephalopathy Comment: Improving Cont lactulose Titrate to 2-3 loose BMs daily (4) Polysubstance abuse Comment: Reported use of Suboxone at home iSTOP shows no record of Rx Will not continue during hosp stay, monitor for opiate wd (5) Hepatitis C Comment: h/o hep C, unsure of tx hx (6) DVT prophylaxis Comment: Cont SQ Lovenox, stop if plt count falls below 50K (7) Full code status Status and Disposition: Inpatient. Anticipate prolonged LOS, unsure of dc plan at this time
[2017-07-27] MEDS: Enoxaparin(*) 40 MG/0.4 ML SYR SUBCUT SCH (17:50)
[2017-07-28 06:08] LABS: Comments Flag Yes; Hematocrit 25 % (42-52); Hemoglobin 8.5 g/dl (14.0-18.0); Mean Corpuscular HGB Conc 34 g/dl (31-36); Mean Corpuscular Hemoglobin 34 pg (27-31); Mean Corpuscular Volume 99 fL (80-94); Red Blood Count 2.53 10^6/ul (4.0-5.4)
[2017-07-28 06:09] LABS: Add Diff/Slide Review? Slide Review Added; Red Cell Distribution Width 18 % (10.5-15)
[2017-07-28 06:15] LABS: Albumin 3.1 g/dL (3.2-5.2); BUN/Creatinine Ratio 16.4 (8-20); Calcium 8.5 mg/dL (8.6-10.3); EGFR African American 177.8 (>60); EGFR Non-African American 138.3 (>60); Potassium 3.8 mmol/L (3.5-5.0); Total Bilirubin 4.5 mg/dL (0.2-1.0); Total Protein 7.1 g/dL (6.4-8.9)
[2017-07-28 07:09] LABS: Mean Platelet Volume 8 um3 (7.4-10.4)
[2017-07-28] MEDS: Lidocaine 2% VISCOUS* 15 ML UDC SWISH SPIT SCH ×3 (07:40→16:51)
[2017-07-28] MEDS: Multivitamins/Minerals TAB PO SCH (09:54)
[2017-07-28] MEDS: methylPREDNISolone SOD 40 MG* 1 ML VIAL IV SCH (09:54)
[2017-07-28] MEDS: Thiamine TAB* 100 MG TAB PO SCH (09:54)
[2017-07-28] MEDS: Lactulose* 15 ML UDC PO SCH ×3 (09:54→20:36)
[2017-07-28] MEDS: Diazepam TAB(*) 10 MG PO SCH ×2 (09:55→21:59)
[2017-07-28] MEDS: Folic Acid TAB* 1 MG PO SCH (09:55)
[2017-07-28] MEDS: Enoxaparin(*) 40 MG/0.4 ML SYR SUBCUT SCH (17:54)
--- NOTE | 2017-07-28 20:04 | PN ---
Subjective Date of Service: 07/28/17 Interval History: INR up to 2.07 but Tbili improved to 4.5, AST to 120. [employer] to 0.61. Bleeding continues at left 3rd finger Objective Active Medications: Diazepam (Valium Tab(*)) 10 mg PO Q12H [facility] PRN Reason: Taper Stop: 07/29/17 13:59 Last Admin: 07/28/17 09:55 Dose: 10 mg Enoxaparin Sodium (Lovenox(*)) 40 mg SUBCUT Q24H [facility] Last Admin: 07/28/17 17:54 Dose: 40 mg Folic Acid (Folvite Tab*) 1 mg PO DAILY [facility] Last Admin: 07/28/17 09:55 Dose: 1 mg Lactulose (Lactulose*) 15 ml PO TID [facility] Last Admin: 07/28/17 15:21 Dose: 15 ml Lidocaine (Xylocaine 2% Viscous*) 20 ml SWISH SPIT AC [facility] Last Admin: 07/28/17 16:51 Dose: 20 ml Lorazepam (Ativan Inj*) 0 - 3 mg IV PUSH .PER [facility] PROTOCOL [facility] PRN Reason: Protocol Last Admin: 07/27/17 18:28 Dose: 1 mg Methylprednisolone Sodium Succinate (Solu-Medrol 40 Mg) 40 mg IV DAILY [facility] Last Admin: 07/28/17 09:54 Dose: 40 mg Multivitamins/Minerals (Theragran/Minerals Tab*) 1 tab PO DAILY [facility] Last Admin: 07/28/17 09:54 Dose: 1 tab Ondansetron HCl (Zofran Inj*) 4 mg IV Q4H PRN PRN Reason: NAUSEA/VOMITING Thiamine HCl (Vitamin B-1 Tab*) 100 mg PO DAILY [facility] Last Admin: 07/28/17 09:54 Dose: 100 mg Vital Signs 07/27/17 07/27/17 07/27/17 20:00 20:08 21:36 Temperature 98.6 F Pulse Rate 83 Respiratory 15 20 15 Rate Blood Pressure 122/62 (mmHg) O2 Sat by Pulse 100 Oximetry 07/27/17 07/27/17 07/28/17 22:00 23:36 00:12 Temperature 98.6 F Pulse Rate 84 82 Respiratory 15 15 16 Rate Blood Pressure 126/70 128/58 (mmHg) O2 Sat by Pulse 96 97 Oximetry 07/28/17 07/28/17 07/28/17 02:08 04:27 06:20 Temperature 97.4 F 97.7 F Pulse Rate 94 71 78 Respiratory 20 16 Rate Blood Pressure 110/58 125/60 120/67 (mmHg) O2 Sat by Pulse 99 98 99 Oximetry 07/28/17 07/28/17 07/28/17 08:00 08:19 08:22 Temperature 97.5 F 97.5 F Pulse Rate 69 71 Respiratory 14 12 12 Rate Blood Pressure 130/73 130/73 (mmHg) O2 Sat by Pulse 100 100 Oximetry 07/28/17 07/28/17 07/28/17 09:55 11:55 12:33 Temperature 98.4 F Pulse Rate 83 Respiratory 14 12 Rate Blood Pressure 147/91 (mmHg) O2 Sat by Pulse 98 Oximetry 07/28/17 07/28/17 07/28/17 14:00 16:05 16:17 Temperature 98.7 F 98.9 F 98.9 F Pulse Rate 83 84 82 Respiratory 12 12 12 Rate Blood Pressure 135/77 132/80 (mmHg) O2 Sat by Pulse 98 99 99 Oximetry 07/28/17 18:15 Temperature 98.0 F Pulse Rate 83 Respiratory 14 Rate Blood Pressure 138/78 (mmHg) O2 Sat by Pulse 97 Oximetry Oxygen Devices in Use Now: None Appearance: no acute distress. pleasently confused. Eyes: No Scleral Icterus, PERRLA Ears/Nose/Mouth/Throat: NL Teeth, Lips, Gums, Mucous Membranes Moist Neck: NL Appearance and Movements; NL JVP, Trachea Midline Respiratory: Symmetrical Chest Expansion and Respiratory Effort, Clear to Auscultation Cardiovascular: NL Sounds; No Murmurs; No JVD, RRR Abdominal: NL Sounds; No Tenderness; No Distention, No Hepatosplenomegaly Extremities: No Edema, No Clubbing, Cyanosis Skin: - - multiple scratches/lacerations. Neurological: - - oriented to person, not year. Result Diagrams: 07/28/17 05:52 07/28/17 05:52 Additional Lab and Data: Laboratory Results - last 24 hr 07/28/17 07/28/17 07/28/17 05:52 05:52 05:52 WBC 5.0 RBC 2.53 L Hgb 8.5 L Hct 25 L MCV 99 H MCH 34 H MCHC 34 RDW 18 H Plt Count 69 L MPV 8 Neut % (Auto) 64.1 Lymph % (Auto) 17.7 L [place] % (Auto) 17.7 H Eos % (Auto) 0 Baso % (Auto) 0.5 Absolute Neuts (auto) 3.2 Absolute Lymphs (auto) 0.9 L Absolute Monos (auto) 0.9 H Absolute Eos (auto) 0 Absolute Basos (auto) 0 Absolute Nucleated RBC 0 Nucleated RBC % 0.1 INR (Anticoag Therapy) 2.07 H Sodium 132 L Potassium 3.8 Chloride 101 Carbon Dioxide 28 Anion Gap 3 BUN 10 Creatinine 0.61 L Est GFR ( Amer) 177.8 Est GFR (Non-Af Amer) 138.3 BUN/Creatinine Ratio 16.4 Glucose 129 H Calcium 8.5 L Total Bilirubin 4.50 H D AST 120 H ALT 40 Alkaline Phosphatase 87 Total Protein 7.1 Albumin 3.1 L Globulin 4.0 Albumin/Globulin Ratio 0.8 L Assess/Plan/Problems-Billing Assessment: 52 yo male with h/o alcoholism and polysubstance abuse admitted with alcoholic hepatitis, alcohol withdrawal and alcoholic encephalopathy. MELD 24. Most labs and mental status improving with steroids and lactulose though INR trending upward. - Patient Problems (1) Alcoholic hepatitis Current Visit: No Status: Acute Priority: High Code(s): K70.10 - ALCOHOLIC HEPATITIS WITHOUT ASCITES SNOMED Code(s): 073140200 Comment: MELD 24 at admission as well as today. Glucocorticoids initiated at admission Plan to cont for total of 28d unless signs of infection Noted improvement in Tbili, Cr and transaminases, but continued rise in INR (2) Alcoholic encephalopathy Current Visit: Yes Status: Acute Code(s): G31.2 - DEGENERATION OF NERVOUS SYSTEM DUE TO ALCOHOL; F10.20 - ALCOHOL DEPENDENCE, UNCOMPLICATED SNOMED Code( s): 602502033 Comment: Improving Continue lactulose Titrate to 2-3 loose BMs daily (3) Polysubstance abuse Current Visit: Yes Status: Acute Code(s): F19.10 - OTHER PSYCHOACTIVE SUBSTANCE ABUSE, UNCOMPLICATED SNOMED Code(s): 796790200 Comment: Reported use of Suboxone at home iSTOP shows no record of Rx Will not continue during hosp stay, monitor for opiate wd (4) Alcohol withdrawal Current Visit: No Status: Acute Priority: High Onset Date: 01/18/15 Code (s): F10.239 - ALCOHOL DEPENDENCE WITH WITHDRAWAL, UNSPECIFIED SNOMED Code(s) : 390205225 Comment: Cont WAM protocol with tapering diazepam Suspect w/d seizure at home that lead to his tongue trauma (5) Hepatitis C Current Visit: No Status: Chronic Priority: Medium Comment: h/o hep C, unsure of tx hx (6) Laceration Current Visit: Yes Status: Acute Code(s): HGX3564 - SNOMED Code(s): 502837497 Comment: ?cat scratchs will give tetanus shot left 3rd finger suture placed 07/28 given continued bleeding in setting of coagulopathy Status and Disposition: Inpatient. Anticipate 2-3 days though could be longer. Attending: Bassam aHys
[2017-07-28] MEDS: LORazepam INJ* 2 MG/ML 1 ML VIAL IV PUSH SCH (22:35)
[2017-07-29] MEDS ORDERED: Tetan/Diph/Pertus SYR(Tdap)* 0.5 ML SYR(BOOSTRIX) use SYR IM ONE (08:18)
[2017-07-29] MEDS: Lidocaine 2% VISCOUS* 15 ML UDC SWISH SPIT SCH ×3 (08:29→17:07)
[2017-07-29] MEDS: Folic Acid TAB* 1 MG PO SCH (08:30)
[2017-07-29] MEDS: methylPREDNISolone SOD 40 MG* 1 ML VIAL IV SCH (08:30)
[2017-07-29] MEDS: Multivitamins/Minerals TAB PO SCH (08:30)
[2017-07-29] MEDS: Thiamine TAB* 100 MG TAB PO SCH (08:30)
[2017-07-29] MEDS: Lactulose* 15 ML UDC PO SCH ×3 (08:30→21:27)
[2017-07-29 10:50] LABS: Hematocrit 28 % (42-52); Hemoglobin 9.6 g/dl (14.0-18.0); Mean Corpuscular HGB Conc 34 g/dl (31-36); Mean Corpuscular Hemoglobin 34 pg (27-31); Mean Corpuscular Volume 99 fL (80-94); Mean Platelet Volume 8 um3 (7.4-10.4); Red Blood Count 2.85 10^6/ul (4.0-5.4); Red Cell Distribution Width 19 % (10.5-15)
[2017-07-29 10:53] LABS: Comments Flag Yes
[2017-07-29 10:54] LABS: Add Diff/Slide Review? Slide Review Added
[2017-07-29 11:05] LABS: Albumin 3.2 g/dL (3.2-5.2); BUN/Creatinine Ratio 17.2 (8-20); Calcium 8.9 mg/dL (8.6-10.3); Direct Bilirubin 1.8 mg/dL (0.03-0.18); EGFR African American 188.5 (>60); EGFR Non-African American 146.6 (>60); Globulin 4.4 g/dL (2-4); Indirect Bilirubin 2.3 mg/dL (0.3-1.0); Potassium 3.4 mmol/L (3.5-5.0); Total Bilirubin 4.1 mg/dL (0.2-1.0); Total Protein 7.6 g/dL (6.4-8.9)
[2017-07-29] MEDS: Diazepam TAB(*) 10 MG PO SCH (11:14)
--- NOTE | 2017-07-29 14:47 | ED ---
Juan Massey Thomas, scribed for Oswaldo Pena MD on 07/26/17 at 1616 . Throat Pain/Nasal Congestion - HPI Summary HPI Summary: The pt is a 52 y/o M presenting to the ED c/o tongue pain. He says that he bit his tongue and he thinks that he had a seizure. He rates this pain 3/10. He has a Hx of ETOH use, Hep C, opiate abuse, and anxiety. He drinks a 12-pack of beer daily. He appears somewhat confused on examination. He has a cracked tooth. He had three beers prior to arrival. He is a smoker. Pt additionally c/o mouth pain and scleral icterus. Pt denies urinary incontinence, SI, and HI. He lives with his brother. He says that he does not use drugs. He was driven to the ED by his ex-girlfriend and a friend. - History of Current Complaint Chief Complaint: EDGeneral Time Seen by Provider: 07/26/17 15:48 Hx Obtained From: Patient Onset/Duration: Still Present Severity: Severe Cough: None Related History: Other (Noted In Comments) - ETOH abuse - Allergies/Home Medications Allergies/Adverse Reactions: Allergies Allergy/AdvReac Type Severity Reaction Status Date / Time No Known Allergies Allergy Verified 07/26/17 15:55 PMH/Surg Hx/FS Hx/Imm Hx Previously Healthy: No Endocrine/Hematology History: Denies: Hx Diabetes Cardiovascular History: Denies: Hx Congestive Heart Failure, Hx Hypertension Respiratory History: Reports: Hx Pneumonia GI History: Reports: Other GI Disorders - abdominal trauma Denies: Hx Cirrhosis, Hx Crohn's Disease, Hx Diverticulosis, Hx Gall Bladder Disease, Hx Gastroesophageal Reflux Disease, Hx Gastrointestinal Bleed, Hx Hiatal Hernia, Hx Irritable Bowel, Hx Jaundice, Hx Obstructive Bowel, Hx Ileostomy, Hx Pyloric Stenosis, Hx Ulcer History: Denies: Hx Renal Disease Sensory History: Reports: Hx Contacts or Glasses - reading Opthamlomology History: Reports: Hx Contacts or Glasses - reading Neurological History: Reports: Hx Seizures - 2-3 seizures in the past year Psychiatric History: Reports: Hx Anxiety, Hx Depression, Hx Panic Disorder, Hx Inpatient Treatment, Hx Community Mental Health Tx, Hx Suicide Attempt Denies: Hx Attention Deficit Hyperactivity Disorder, Hx Eating Disorder, Hx Post Traumatic Stress Disorder, Hx Schizophrenia, Hx Bipolar Disorder, Hx of Violent Episodes Against Others, Other Psychiatric Issues/Disorders Comment Only: Hx Substance Abuse - etoh - Surgical History Surgery Procedure, Year, and Place: Bladder repair Hx Anesthesia Reactions: No - Immunization History Date of Tetanus Vaccine: UTD Date of Influenza Vaccine: NO Infectious Disease History: No Infectious Disease History: Reports: Hx Hepatitis, History Other Infectious Disease - Hep C Denies: Hx Clostridium Difficile, Hx Human Immunodeficiency Virus (HIV), Hx of Known/Suspected MRSA, Hx Shingles, Hx Tuberculosis, Hx Known/Suspected VRE, Hx Known/Suspected VRSA, Traveled Outside the [place] in Last 30 Days - Family History Known Family History: Positive: Cardiac Disease, Hypertension, Diabetes, Other - bipolar disorder, EtOH abuse Negative: Blood Disorder - no clotting d/o - Social History Alcohol Use: Daily Alcohol Amount: 12 pack of beer daily Hx Substance Use: No - states not IVDA recently Substance Use Type: Reports: Heroin, Marijuana Substance Use Comment - Amount & Last Used: uses suboxone Hx Tobacco Use: Yes Smoking Status (MU): Heavy Every Day Tobacco Smoker Type: Cigarettes Have You Smoked in the Last Year: Yes Review of Systems Negative: Fever, Chills Positive: Other - Scleral icterus. Negative: Erythema - eyes Positive: Other - Tongue pain, mouth pain. Negative: Sore Throat Negative: Chest Pain Negative: Shortness Of Breath, Cough Negative: Abdominal Pain, Vomiting, Nausea Positive: other - NEGATIVE: urinary incontinence. Negative: dysuria, hematuria Negative: Myalgia, Edema - legs Negative: Rash Neurological: Other - NEGATIVE: dizziness Positive: Other - NEGATIVE: SI, HI All Other Systems Reviewed And Are Negative: Yes Physical Exam - Summary Physical Exam Summary: Constitutional: Well-developed, Well-nourished, Alert. (-) Distressed Skin: Warm, Dry HENT: Normocephalic; Atraumatic. Mildly swollen tongue ulcerations that are bleeding. There is no sublingual erythema or tenderness. There is no suggestion of Lorenzo's angina. Eyes: Scleral icterus. Nystagmus. Neck: Musculoskeletal ROM normal neck. (-) JVD, (-) Stridor, (-) Tracheal deviation Cardio: Rhythm regular, rate normal, Heart sounds normal; Intact distal pulses; The pedal pulses are 2+ and symmetric. Radial pulses are 2+ and symmetric. (-) Murmur Pulmonary/Chest wall: Effort normal. (-) Respiratory distress, (-) Wheezes, (-) Rales Abd: Soft, (-) Tenderness, (-) Distension, (-) Guarding, (-) Rebound Musculoskeletal: (-) Edema Lymph: (-) Cervical adenopathy Neuro: Alert, Oriented x3 Psych: Mood and affect Normal Triage Information Reviewed: Yes Vital Signs On Initial Exam: Initial Vitals Temp Pulse Resp BP Pulse Ox 97.8 F 115 16 125/70 100 07/26/17 14:51 07/26/17 14:51 07/26/17 14:51 07/26/17 14:51 07/26/17 14:51 Vital Signs Reviewed: Yes - Price Coma Scale Coma Scale Total: 14 Diagnostics - Vital Signs Vital Signs Temp Pulse Resp BP Pulse Ox 07/26/17 14:51 97.8 F 115 16 125/70 100 - Laboratory Lab Results: Lab Results 07/26/17 Range/Units 15:55 WBC 9.1 (3.5-10.8) 10^3/ul RBC 2.94 L (4.0-5.4) 10^6/ul Hgb 9.9 L (14.0-18.0) g/dl Hct 29 L (42-52) % MCV 98 H (80-94) fL MCH 34 H (27-31) pg MCHC 34 (31-36) g/dl RDW 18 H (10.5-15) % Plt Count 79 L (150-450) 10^3/ul MPV 9 (7.4-10.4) um3 Neut % (Auto) 71.8 (38-83) % Lymph % (Auto) 10.4 L (25-47) % [place] % (Auto) 15.9 H (1-9) % Eos % (Auto) 1.2 (0-6) % Baso % (Auto) 0.7 (0-2) % Absolute Neuts (auto) 6.5 (1.5-7.7) 10^3/ul Absolute Lymphs (auto) 0.9 L (1.0-4.8) 10^3/ul Absolute Monos (auto) 1.4 H (0-0.8) 10^3/ul Absolute Eos (auto) 0.1 (0-0.6) 10^3/ul Absolute Basos (auto) 0.1 (0-0.2) 10^3/ul Absolute Nucleated RBC 0 10^3/ul Nucleated RBC % 0 Result Diagrams: 07/26/17 15:55 07/26/17 15:55 Lab Statement: Any lab studies that have been ordered have been reviewed, and results considered in the medical decision making process. - CT CT C-Spine CT Interpretation: No Acute Changes - CT C-Spine shows DEGENERATIVE DISC DISEASE AT C4-C5, C5-C6 AND C6-C7 WITH BILATERAL UNCOVERTEBRAL JOINT HYPERTROPHY WITH MILD FORAMINAL STENOSIS AT THESE LEVELS. NO FRACTURE OF THE CERVICAL SPINE IS OTHERWISE NOTED. ED physician has reviewed this radiology report and agrees. CT Interpretation Completed By: Radiologist CT Brain CT Interpretation: No Acute Changes - 1. No calvarial fracture or acute intracranial hemorrhage. 2. No facial bone fractures. 3. Multiple lucencies are seen throughout the teeth consistent with dental caries. Please correlate to dental exam. ED physician has reviewed this radiology report and agrees. CT Interpretation Completed By: Radiologist CT Maxillofacial CT Interpretation: No Acute Changes - 1. No calvarial fracture or acute intracranial hemorrhage. 2. No facial bone fractures. 3. Multiple lucencies are seen throughout the teeth consistent with dental caries. Please correlate to dental exam. ED physician has reviewed this radiology report and agrees. CT Interpretation Completed By: Radiologist - EKG 15:50 Cardiac Rate: NL - 99 BPM EKG Interpretation: Sinus rhythm with no STEMI EENT Course/Dx - Course Assessment/Plan: The pt is a 52 y/o M presenting to the ED c/o tongue pain. He says that he bit his tongue and he thinks that he had a seizure. He rates this pain 3/10. He has a Hx of ETOH use, Hep C, opiate abuse, and anxiety. He drinks a 12-pack of beer daily. He appears somewhat confused on examination. He has a cracked tooth. He had three beers prior to arrival. He is a smoker. Pt additionally c/o mouth pain and scleral icterus. Pt denies urinary incontinence , SI, and HI. He lives with his brother. He says that he does not use drugs. He was driven to the ED by his ex-girlfriend and a friend. Physical exam shows Mildly swollen tongue ulcerations that are bleeding. There is no sublingual erythema or tenderness. There is no suggestion of Lorenzo's angina. Scleral icterus. Bloodwork shows RBC 2.94, Hct 29, Sodium 128, Potassium 3.1, Chloride 93, anion gap 12, creatinine 1.40, bilirubin 8.20, AST 282, ALT 57, ammonia 64. ETOH pending at time of admission. EKG at 15:50 reveals sinus rhythm at 99 BPM with no STEMI. CT C-Spine shows DEGENERATIVE DISC DISEASE AT C4-C5, C5-C6 AND C6 -C7 WITH BILATERAL UNCOVERTEBRAL JOINT HYPERTROPHY WITH MILD FORAMINAL STENOSIS AT THESE LEVELS. NO FRACTURE OF THE CERVICAL SPINE IS OTHERWISE NOTED. CT Brain and Maxillofacial shows 1. No calvarial fracture or acute intracranial hemorrhage. 2. No facial bone fractures. 3. Multiple lucencies are seen throughout the teeth consistent with dental caries. Please correlate to dental exam. ED physician has reviewed this radiology report and agrees. I consulted with Dr. Squires, gastroenterology, regarding patient care. I also consulted with Dr. Salinas, hospitalist, who admits the patient at 16:45. Patient is diagnosed with hepatic encephalopathy, hepatic failure, ETOH withdrawal seizure , and tongue bleeding. - Diagnoses Provider Diagnoses: ETOH withdrawal seizures, Hepatic encephalopathy, Hepatic failure, Hemorrhage of tongue - Provider Notifications Discussed Care Of Patient With: Amaury Squires Time Discussed With Above Provider: 16:29 Instructed by Provider To: Other - We consulted regarding patient care. I also consulted with Dr. Salinas, hospitalist, who admits the patient at 16:43 Discharge - Discharge Plan Condition: Fair Disposition: ADMITTED TO [facility] documentation as recorded by the Juan borjas Thomas accurately reflects the service I personally performed and the decisions made by me, Oswaldo Pena MD.
[2017-07-29] MEDS: Enoxaparin(*) 40 MG/0.4 ML SYR SUBCUT SCH (17:08)
--- NOTE | 2017-07-29 19:43 | PN ---
Subjective Date of Service: 07/29/17 Interval History: INR slightly improved. MELD to 22 from 24. Mentation markedly improved. Not sure if ready for detox program. Attests to daily beer drinking but only 2-4 a day. 1mg ativan at 10pm none since. Objective Active Medications: Enoxaparin Sodium (Lovenox(*)) 40 mg SUBCUT Q24H [facility] Last Admin: 07/29/17 17:08 Dose: 40 mg Folic Acid (Folvite Tab*) 1 mg PO DAILY [facility] Last Admin: 07/29/17 08:30 Dose: 1 mg Lactulose (Lactulose*) 15 ml PO TID [facility] Last Admin: 07/29/17 14:23 Dose: 15 ml Lidocaine (Xylocaine 2% Viscous*) 20 ml SWISH SPIT AC [facility] Last Admin: 07/29/17 17:07 Dose: 20 ml Lorazepam (Ativan Inj*) 0 - 3 mg IV PUSH .PER [facility] PROTOCOL [facility] PRN Reason: Protocol Last Admin: 07/28/17 22:35 Dose: 1 mg Methylprednisolone Sodium Succinate (Solu-Medrol 40 Mg) 40 mg IV DAILY [facility] Last Admin: 07/29/17 08:30 Dose: 40 mg Multivitamins/Minerals (Theragran/Minerals Tab*) 1 tab PO DAILY [facility] Last Admin: 07/29/17 08:30 Dose: 1 tab Ondansetron HCl (Zofran Inj*) 4 mg IV Q4H [facility] PRN Reason: NAUSEA/VOMITING Thiamine HCl (Vitamin B-1 Tab*) 100 mg PO DAILY [facility] Last Admin: 07/29/17 08:30 Dose: 100 mg Vital Signs 07/28/17 07/28/17 07/28/17 20:00 20:20 21:59 Temperature Pulse Rate 84 Respiratory 17 18 15 Rate Blood Pressure 142/72 (mmHg) O2 Sat by Pulse Oximetry 07/28/17 07/28/17 07/28/17 22:33 22:35 23:35 Temperature Pulse Rate 79 Respiratory 16 15 Rate Blood Pressure 144/85 (mmHg) O2 Sat by Pulse 99 Oximetry 07/28/17 07/29/17 07/29/17 23:59 00:47 00:53 Temperature 97.9 F 97.9 F Pulse Rate 69 69 Respiratory 15 16 16 Rate Blood Pressure 128/60 128/60 (mmHg) O2 Sat by Pulse 97 97 Oximetry 07/29/17 07/29/17 07/29/17 02:14 02:23 03:46 Temperature 98.0 F 98.0 F 97.7 F Pulse Rate 68 68 70 Respiratory 16 16 18 Rate Blood Pressure 121/62 121/62 130/70 (mmHg) O2 Sat by Pulse 97 97 99 Oximetry 07/29/17 07/29/17 07/29/17 03:55 04:18 06:05 Temperature 97.7 F Pulse Rate 70 70 69 Respiratory 18 Rate Blood Pressure 130/70 119/75 141/84 (mmHg) O2 Sat by Pulse 99 Oximetry 07/29/17 07/29/17 07/29/17 06:19 08:00 08:20 Temperature 98.1 F Pulse Rate 69 62 Respiratory 16 15 Rate Blood Pressure 141/84 (mmHg) O2 Sat by Pulse 98 98 Oximetry 07/29/17 07/29/17 07/29/17 08:42 10:21 11:14 Temperature 98.1 F 98.1 F Pulse Rate 62 72 Respiratory 15 16 12 Rate Blood Pressure 138/80 136/76 (mmHg) O2 Sat by Pulse 98 98 Oximetry 07/29/17 07/29/17 07/29/17 12:21 13:14 16:01 Temperature 98.6 F 97.4 F Pulse Rate 86 77 Respiratory 16 16 18 Rate Blood Pressure 137/90 125/74 (mmHg) O2 Sat by Pulse 99 100 Oximetry Oxygen Devices in Use Now: None Appearance: more alert and sharp. no asterixis. no acute distress. Eyes: - - trace scleral icterus Ears/Nose/Mouth/Throat: Clear Oropharnyx, - - ulceration/ on b/l sides of tongue. Respiratory: Symmetrical Chest Expansion and Respiratory Effort, Clear to Auscultation Cardiovascular: NL Sounds; No Murmurs; No JVD, RRR Abdominal: NL Sounds; No Tenderness; No Distention Extremities: No Edema Skin: - - scratches, exoriations. Neurological: Alert and Oriented x 3 Result Diagrams: 07/29/17 10:42 07/29/17 10:42 Additional Lab and Data: Laboratory Results - last 24 hr 07/29/17 07/29/17 07/29/17 10:42 10:42 10:42 WBC 4.0 RBC 2.85 L Hgb 9.6 L Hct 28 L MCV 99 H MCH 34 H MCHC 34 RDW 19 H Plt Count 93 L MPV 8 Neut % (Auto) 61.5 Lymph % (Auto) 18.8 L [place] % (Auto) 19.0 H Eos % (Auto) 0.4 Baso % (Auto) 0.3 Absolute Neuts (auto) 2.5 Absolute Lymphs (auto) 0.8 L Absolute Monos (auto) 0.8 Absolute Eos (auto) 0 Absolute Basos (auto) 0 Absolute Nucleated RBC 0 Nucleated RBC % 0 INR (Anticoag Therapy) 1.96 H Sodium 133 Potassium 3.4 L Chloride 97 L Carbon Dioxide 30 Anion Gap 6 BUN 10 Creatinine 0.58 L Est GFR ( Amer) 188.5 Est GFR (Non-Af Amer) 146.6 BUN/Creatinine Ratio 17.2 Glucose 180 H Calcium 8.9 Total Bilirubin 4.10 H Direct Bilirubin 1.80 H Indirect Bilirubin 2.3 H AST 114 H ALT 53 H Alkaline Phosphatase 90 Total Protein 7.6 Albumin 3.2 Globulin 4.4 H Albumin/Globulin Ratio 0.7 L Assess/Plan/Problems-Billing Assessment: 52 yo male with h/o alcoholism and polysubstance abuse admitted with alcoholic hepatitis, alcohol withdrawal and alcoholic encephalopathy. MELD 24 -> 22. Most labs and mental status improving with steroids and lactulose. Likely discharge soon. - Patient Problems (1) Alcoholic hepatitis Current Visit: No Status: Acute Priority: High Code(s): K70.10 - ALCOHOLIC HEPATITIS WITHOUT ASCITES SNOMED Code(s): 699036200 Comment: MELD 24-> 22 Glucocorticoids initiated at admission Plan to cont for total of 28d unless signs of infection Noted improvement in Tbili, Cr and transaminases. INR slight downtrend (2) Alcoholic encephalopathy Current Visit: Yes Status: Acute Code(s): G31.2 - DEGENERATION OF NERVOUS SYSTEM DUE TO ALCOHOL; F10.20 - ALCOHOL DEPENDENCE, UNCOMPLICATED SNOMED Code( s): 193984978 Comment: Resolved. Continue lactulose Titrate to 2-3 loose BMs daily (3) Polysubstance abuse Current Visit: Yes Status: Acute Code(s): F19.10 - OTHER PSYCHOACTIVE SUBSTANCE ABUSE, UNCOMPLICATED SNOMED Code(s): 464710445 Comment: Reported use of Suboxone at home iSTOP shows no record of Rx Will not continue during hosp stay, monitor for opiate wd (4) Alcohol withdrawal Current Visit: No Status: Acute Priority: High Onset Date: 01/18/15 Code (s): F10.239 - ALCOHOL DEPENDENCE WITH WITHDRAWAL, UNSPECIFIED SNOMED Code(s) : 894984579 Comment: Cont WAM protocol with tapering diazepam, reduced requirements though was 16 last night Suspect w/d seizure at home that lead to his tongue trauma (5) Hepatitis C Current Visit: No Status: Chronic Priority: Medium Comment: h/o hep C, unsure of tx hx (6) Laceration Current Visit: Yes Status: Acute Code(s): [id number] - SNOMED Code(s): 123353395 Comment: ?cat scratchs will give TDAP shot left 3rd finger suture placed 07/28 given continued bleeding in setting of coagulopathy. bleeding resolved. Status and Disposition: Inpatient. Anticipate discharge 07/30 pending PT eval. Attending: Bassam Hays
[2017-07-30 07:04] LABS: Hematocrit 27 % (42-52); Hemoglobin 9.2 g/dl (14.0-18.0); Mean Corpuscular HGB Conc 34 g/dl (31-36); Mean Corpuscular Hemoglobin 34 pg (27-31); Mean Corpuscular Volume 98 fL (80-94); Red Blood Count 2.73 10^6/ul (4.0-5.4); Red Cell Distribution Width 19 % (10.5-15); White Blood Count 4.4 10^3/ul (3.5-10.8)
[2017-07-30 07:14] LABS: Calcium 8.5 mg/dL (8.6-10.3); EGFR African American 165.3 (>60); EGFR Non-African American 128.5 (>60); Potassium 3.6 mmol/L (3.5-5.0)
[2017-07-30 07:17] LABS: Add Diff/Slide Review? Slide Review Added; Comments Flag Yes
[2017-07-30 07:45] LABS: Mean Platelet Volume 9 um3 (7.4-10.4)
[2017-07-30] MEDS: Lidocaine 2% VISCOUS* 15 ML UDC SWISH SPIT SCH ×3 (08:21→16:57)
[2017-07-30] MEDS: Lactulose* 15 ML UDC PO SCH ×3 (08:22→20:38)
[2017-07-30] MEDS: Multivitamins/Minerals TAB PO SCH (08:22)
[2017-07-30] MEDS: Folic Acid TAB* 1 MG PO SCH (08:22)
[2017-07-30] MEDS: methylPREDNISolone SOD 40 MG* 1 ML VIAL IV SCH (08:22)
[2017-07-30] MEDS: Thiamine TAB* 100 MG TAB PO SCH (08:22)
[2017-07-30 09:26] LABS: Albumin 2.9 g/dL (3.2-5.2); Direct Bilirubin 1.3 mg/dL (0.03-0.18); Indirect Bilirubin 1.6 mg/dL (0.3-1.0); Total Bilirubin 2.9 mg/dL (0.2-1.0); Total Protein 6.9 g/dL (6.4-8.9)
[2017-07-30] MEDS: Enoxaparin(*) 40 MG/0.4 ML SYR SUBCUT SCH (16:56)
--- NOTE | 2017-07-30 17:51 | PN ---
Subjective Date of Service: 07/30/17 Interval History: Pt with main complaint of tongue pain and weakness. Worked with PT and needed walker for unassisted walking. LFTs continue to improve. Objective Active Medications: Enoxaparin Sodium (Lovenox(*)) 40 mg SUBCUT Q24H [facility] Last Admin: 07/30/17 16:56 Dose: 40 mg Folic Acid (Folvite Tab*) 1 mg PO DAILY [facility] Last Admin: 07/30/17 08:22 Dose: 1 mg Lactulose (Lactulose*) 15 ml PO TID [facility] Last Admin: 07/30/17 13:06 Dose: 15 ml Lidocaine (Xylocaine 2% Viscous*) 20 ml SWISH SPIT AC [facility] Last Admin: 07/30/17 16:57 Dose: 20 ml Lorazepam (Ativan Inj*) 0 - 3 mg IV PUSH .PER [facility] PROTOCOL [facility] PRN Reason: Protocol Last Admin: 07/28/17 22:35 Dose: 1 mg Methylprednisolone Sodium Succinate (Solu-Medrol 40 Mg) 40 mg IV DAILY [facility] Last Admin: 07/30/17 08:22 Dose: 40 mg Multivitamins/Minerals (Theragran/Minerals Tab*) 1 tab PO DAILY [facility] Last Admin: 07/30/17 08:22 Dose: 1 tab Ondansetron HCl (Zofran Inj*) 4 mg IV Q4H PRN PRN Reason: NAUSEA/VOMITING Thiamine HCl (Vitamin B-1 Tab*) 100 mg PO DAILY [facility] Last Admin: 07/30/17 08:22 Dose: 100 mg Vital Signs 07/29/17 07/29/17 07/29/17 18:20 20:08 22:14 Temperature 97.4 F 98.5 F 98.1 F Pulse Rate 84 77 79 Respiratory 20 16 18 Rate Blood Pressure 124/88 128/79 133/71 (mmHg) O2 Sat by Pulse 97 97 97 Oximetry 07/29/17 07/30/17 07/30/17 22:33 02:27 04:41 Temperature 98.4 F 98.2 F Pulse Rate 84 79 Respiratory 18 16 16 Rate Blood Pressure 108/72 133/86 (mmHg) O2 Sat by Pulse 97 98 Oximetry 07/30/17 07/30/17 07/30/17 07:00 07:43 08:00 Temperature 98.6 F 98.6 F Pulse Rate 86 72 Respiratory 16 16 16 Rate Blood Pressure 126/83 115/73 (mmHg) O2 Sat by Pulse 99 97 Oximetry 07/30/17 07/30/17 07/30/17 10:34 12:38 14:12 Temperature 98.3 F 98.6 F 98.7 F Pulse Rate 77 80 82 Respiratory 12 14 14 Rate Blood Pressure 134/76 140/81 154/83 (mmHg) O2 Sat by Pulse 97 100 98 Oximetry 07/30/17 16:35 Temperature 98.3 F Pulse Rate 90 Respiratory 22 Rate Blood Pressure 134/77 (mmHg) O2 Sat by Pulse 99 Oximetry Oxygen Devices in Use Now: None Appearance: Sleepy but easily arousable and slow to process response to questions. Oriented Eyes: - - resolved icterus Ears/Nose/Mouth/Throat: Mucous Membranes Moist, - - lesions on bottome of tongue. Neck: NL Appearance and Movements; NL JVP, Trachea Midline Respiratory: Symmetrical Chest Expansion and Respiratory Effort, Clear to Auscultation Cardiovascular: NL Sounds; No Murmurs; No JVD, RRR, No Edema Abdominal: NL Sounds; No Tenderness; No Distention Extremities: No Edema Skin: No Rash or Ulcers Neurological: Alert and Oriented x 3 Result Diagrams: 07/30/17 06:46 07/30/17 06:46 Additional Lab and Data: Laboratory Results - last 24 hr 07/30/17 07/30/17 06:46 06:46 WBC 4.4 RBC 2.73 L Hgb 9.2 L Hct 27 L MCV 98 H MCH 34 H MCHC 34 RDW 19 H Plt Count 96 L MPV 9 Neut % (Auto) 43.6 Lymph % (Auto) 33.8 Clinch % (Auto) 21.1 H Eos % (Auto) 0.7 Baso % (Auto) 0.8 Absolute Neuts (auto) 1.9 Absolute Lymphs (auto) 1.5 Absolute Monos (auto) 0.9 H Absolute Eos (auto) 0 Absolute Basos (auto) 0 Absolute Nucleated RBC 0.01 Nucleated RBC % 0.2 Sodium 134 Potassium 3.6 Chloride 100 L Carbon Dioxide 31 Anion Gap 3 BUN 13 Creatinine 0.65 L Est GFR ( Amer) 165.3 Est GFR (Non-Af Amer) 128.5 BUN/Creatinine Ratio 20.0 Glucose 120 H Calcium 8.5 L Total Bilirubin 2.90 H Direct Bilirubin 1.30 H Indirect Bilirubin 1.6 H AST 86 H ALT 49 Alkaline Phosphatase 111 H Total Protein 6.9 Albumin 2.9 L Globulin 4.0 Albumin/Globulin Ratio 0.7 L Assess/Plan/Problems-Billing Assessment: 52 yo male with h/o alcoholism and polysubstance abuse admitted with alcoholic hepatitis, alcohol withdrawal and alcoholic encephalopathy. MELD 24 -> 22. Labs and mental status improving with steroids and lactulose. Likely discharge 07/31 to home + AA vs 08/01 after inpatient rehab can be arranged (pt not completely there yet. - Patient Problems (1) Alcoholic hepatitis Current Visit: No Status: Acute Priority: High Code(s): K70.10 - ALCOHOLIC HEPATITIS WITHOUT ASCITES SNOMED Code(s): 549167458 Comment: MELD 24-> 22 Glucocorticoids initiated at admission Plan to cont for total of 28d unless signs of infection Noted improvement in Tbili, Cr and transaminases. INR slight downtrend 07/29 (2) Alcoholic encephalopathy Current Visit: Yes Status: Acute Code(s): G31.2 - DEGENERATION OF NERVOUS SYSTEM DUE TO ALCOHOL; F10.20 - ALCOHOL DEPENDENCE, UNCOMPLICATED SNOMED Code( s): 758822257 Comment: Resolved. Continue lactulose Titrate to 2-3 loose BMs daily (3) Polysubstance abuse Current Visit: Yes Status: Acute Code(s): F19.10 - OTHER PSYCHOACTIVE SUBSTANCE ABUSE, UNCOMPLICATED SNOMED Code(s): 675371301 Comment: Reported use of Suboxone at home iSTOP shows no record of Rx Will not continue during hosp stay, monitor for opiate wd (4) Alcohol withdrawal Current Visit: No Status: Acute Priority: High Onset Date: 01/18/15 Code (s): F10.239 - ALCOHOL DEPENDENCE WITH WITHDRAWAL, UNSPECIFIED SNOMED Code(s) : 616314588 Comment: stop [facility] protocol Suspect w/d seizure at home that lead to his tongue trauma (5) Hepatitis C Current Visit: No Status: Chronic Priority: Medium Comment: h/o hep C, unsure of tx hx (6) Laceration Current Visit: Yes Status: Acute Code(s): LBB3773 - SNOMED Code(s): 586599469 Comment: ?cat scratchs will give TDAP shot left 3rd finger suture placed 07/28 given continued bleeding in setting of coagulopathy. bleeding resolved. Status and Disposition: Inpatient. Anticipate discharge 07/31 to home + AA at "[id number]" vs if patient decides for inpatient rehab then on 08/01 Attending: Bassam Hays
[2017-07-31 06:21] LABS: Albumin 2.8 g/dL (3.2-5.2); BUN/Creatinine Ratio 20.4 (8-20); Calcium 8.3 mg/dL (8.6-10.3); Direct Bilirubin 1.2 mg/dL (0.03-0.18); EGFR African American 204.7 (>60); EGFR Non-African American 159.2 (>60); Indirect Bilirubin 1.5 mg/dL (0.3-1.0); Potassium 3.4 mmol/L (3.5-5.0); Total Bilirubin 2.7 mg/dL (0.2-1.0); Total Protein 6.8 g/dL (6.4-8.9)
[2017-07-31 06:28] LABS: Hematocrit 29 % (42-52); Hemoglobin 9.8 g/dl (14.0-18.0); Mean Corpuscular HGB Conc 34 g/dl (31-36); Mean Corpuscular Hemoglobin 34 pg (27-31); Mean Corpuscular Volume 98 fL (80-94); Red Blood Count 2.92 10^6/ul (4.0-5.4); Red Cell Distribution Width 19 % (10.5-15); White Blood Count 5.3 10^3/ul (3.5-10.8)
[2017-07-31 06:29] LABS: Comments Flag Yes
[2017-07-31 06:32] LABS: Add Diff/Slide Review? Slide Review Added
[2017-07-31] MEDS: Multivitamins/Minerals TAB PO SCH (08:40)
[2017-07-31] MEDS: Folic Acid TAB* 1 MG PO SCH (08:40)
[2017-07-31] MEDS: Thiamine TAB* 100 MG TAB PO SCH (08:41)
[2017-07-31] MEDS: Lactulose* 15 ML UDC PO SCH (08:41)
[2017-07-31] MEDS: PrednisoLONE LIQ 3 MG/ML* 15 MG/5 ML UDC PO SCH ×2 (08:42→08:51)
[2017-07-31] MEDS: Lidocaine 2% VISCOUS* 15 ML UDC SWISH SPIT SCH ×2 (08:44→11:26)
[2017-07-31 10:33] VITALS: BP 131/81
--- NOTE | 2017-08-01 05:10 | DS ---
DISCHARGE SUMMARY: DATE OF ADMISSION: 07/26/17 DATE OF DISCHARGE: 07/31/17 ADMITTING PROVIDER: ANISH Recinos. ATTENDING PHYSICIANS: Bassam Hays MD. PRIMARY CARE PROVIDER: Dr. Vega, but has not seen anyone in many, many years and is planning to schedule followup with [facility]. CHIEF COMPLAINT: Mouth bleeding, loss of consciousness, alcohol use. PRINCIPAL DIAGNOSES: Alcoholic hepatitis, likely alcohol withdrawal seizures, alcoholic encephalopathy. SECONDARY DIAGNOSES: 1. Alcoholism. 2. Polysubstance abuse. 3. History of hepatitis C. 4. Depression and anxiety. HISTORY OF PRESENT ILLNESS AND HOSPITAL COURSE: The patient is a 52-year-old gentleman with past medical history as above, who presented to the emergency room with complaints of acute bleeding from his mouth. He woke from sleep with this and was unable to provide meaningful history at that time. He reportedly had declining alcohol use over the preceding few days. He was impulsive and confused in the ED, attested to a few beers earlier that day. Alcohol level was noted to be 0. His initial evaluation was significant for elevated total bilirubin to 8.2, AST of 282, ALT of 57, ammonia at 864. INR was elevated to 1.74. He was admitted for concern for alcoholic hepatitis and given his MELD of 24, elevated INR, most likely elevated PT, and elevated presumed discriminant function, was started on 40 mg of Solu-Medrol daily for alcoholic hepatitis. He was tachycardic and tremulous and started on WAM protocol with tapering Valium doses, given a banana bag in the emergency room, and started on thiamine, folate, multivitamin for encephalic encephalopathy, was given lactulose titrated to 2 to 3 soft bowel movements a day, which he did and his mental status improved. He was evaluated by Physical Therapy. He needed a walker to walk unassisted, but otherwise had no acute or subacute physical therapy needs. His transaminitis gradually improved. His T-bili on day of discharge was 2.7, AST 80, ALT 50, alk phos 126 noted only to be 71 on admission. His INR was 1.93. His peak during hospital stay was 2.07. Hemoglobin 9.8 on discharge, stable in the mid 8s to mid 9s. The patient and provider had long discussions about his need for alcohol cessation. He has had previous success in a residential facility in [place], [place], has had bad experiences with [facility] and [facility] and is not willing to go there. He attests that he will go to the AA meeting at "[id number]". Of note, he previously about 10 years ago led AA meetings. The patient will be discharged on 22 further days of prednisolone by mouth, lidocaine for his tongue ulcers likely from withdrawal seizure, thiamine, folate, and multivitamin tabs. He is going to follow up with [facility]. DISPOSITION: Home. DIET: Regular unchanged with strong cessation of alcohol use encouraged. DISCHARGE MEDICATIONS: Include: 1. Folic acid 1 mg p.o. daily. 2. Lidocaine 2% viscous 20 mL swish with each meal. 3. Multivitamin one tab p.o. daily. 4. Prednisolone 48 mg p.o. daily for another 22 days (total 28-day steroid course). 5. Thiamine 100 mg p.o. daily. TIME SPENT ON DISCHARGE: Thirty-five minutes. [id number]/[facility] #: [id number] [place]
== END 2017-07-31 13:00 | disposition home or self-care (01) | DRG 280 ==
LOC: ED 14:42 → MED 16:43
PROVIDERS: ADMIT Internal Medicine; ATTEND Internal Medicine
PROC: 0HQGXZZ Repair Left Hand Skin, External Approach (ICD-10-PCS; principal; 2017-07-28)
DX: K70.10 Alcoholic hepatitis without ascites (principal); E87.1 Hypo-osmolality and hyponatremia; K70.40 Alcoholic hepatic failure without coma; G31.2 Degeneration of nervous system due to alcohol; K14.0 Glossitis; S61.213A Laceration without foreign body of left middle finger without damage to nail, initial encounter; G40.509 Epileptic seizures related to external causes, not intractable, without status epilepticus; F10.239 Alcohol dependence with withdrawal, unspecified; F10.20 Alcohol dependence, uncomplicated; Y90.0 Blood alcohol level of less than 20 mg/100 ml; F32.9 Major depressive disorder, single episode, unspecified; F41.9 Anxiety disorder, unspecified; E86.1 Hypovolemia; F12.10 Cannabis abuse, uncomplicated; X58.XXXA Exposure to other specified factors, initial encounter; F17.210 Nicotine dependence, cigarettes, uncomplicated; K14.8 Other diseases of tongue; Y92.9 Unspecified place or not applicable; Z86.19 Personal history of other infectious and parasitic diseases
CPT/HCPCS: 36415; 70450; 70486; 72125; 80048; 80053; 80076; 80307; 80320; 81003; 81015; 82140; 83605; 84484; 85025; 85610; 85730; 90715; 93005; A9270-GY; G0480; J1650; J2060; J2920; J3411; J3480; J7510

== ENCOUNTER 2017-08-20 19:03 | Inpatient (IN) | payer OTHER ==
[2017-08-20 20:20] LABS: Comments Flag Yes
[2017-08-20 20:23] LABS: Hematocrit 18 % (42-52); Mean Corpuscular HGB Conc 35 g/dl (31-36); Mean Corpuscular Hemoglobin 36 pg (27-31); Mean Corpuscular Volume 102 fL (80-94); Mean Platelet Volume 7 um3 (7.4-10.4); Red Blood Count 1.72 10^6/ul (4.0-5.4); Red Cell Distribution Width 18 % (10.5-15); White Blood Count 4.6 10^3/ul (3.5-10.8)
[2017-08-20 20:24] LABS: Add Diff/Slide Review? Slide Review Added; Hemoglobin 6.1 g/dl (14.0-18.0)
[2017-08-20 20:31] LABS: BUN/Creatinine Ratio 8.3 (8-20); Calcium 8.3 mg/dL (8.6-10.3); EGFR African American 181.3 (>60); EGFR Non-African American 140.9 (>60); Globulin 3.9 g/dL (2-4); Potassium 3.3 mmol/L (3.5-5.0); Total Bilirubin 2.9 mg/dL (0.2-1.0); Total Protein 6.9 g/dL (6.4-8.9)
[2017-08-20 20:34] LABS: Troponin I 0.01 ng/mL (<0.04)
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
[2017-08-20] MEDS ORDERED: Pantoprazole IV* 40 MG IV ONE (21:27)
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
[2017-08-20] MEDS: Pantoprazole IV* 80 MG in NS 0.9% 250 ML* 250 ML IVPB SCH (21:55)
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
[2017-08-20] MEDS ORDERED: Pantoprazole IV* 80 MG in NS 0.9% 250 ML* 250 ML IV SCH (22:00)
[2017-08-20] MEDS ORDERED: Morphine INJ* 4 MG/ML 1 ML CARPUJECT IV PRN (22:00)
[2017-08-20] MEDS ORDERED: Ondansetron INJ* 2 MG/ML VIAL IV PRN (22:00)
[2017-08-20] MEDS ORDERED: Nicotine GUM* 2 MG PO PRN (22:17)
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
[2017-08-20] MEDS ORDERED: LORazepam INJ* 2 MG/ML 1 ML VIAL IV PUSH SCH (23:00)
[2017-08-21] MEDS: LORazepam TAB(*) 1 MG PO SCH ×4 (00:44→21:15)
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
[2017-08-21] MEDS: Nicotine PATCH 21 MG/24 HR* PATCH TRANSDERM SCH (07:51)
[2017-08-21] MEDS: NS 0.9% 1000 ML* 1,000 ML IV SCH (07:52)
[2017-08-21] MEDS: Acetaminophen TAB* 325 MG PO PRN ×3 (09:50→22:36)
[2017-08-21] MEDS: Multivitamins/Minerals TAB PO SCH (09:50)
[2017-08-21] MEDS: Thiamine TAB* 100 MG TAB PO SCH (09:50)
[2017-08-21] MEDS: Folic Acid TAB* 1 MG PO SCH (09:51)
[2017-08-21 10:04] LABS: Comments Flag Yes; Hematocrit 20 % (42-52); Mean Corpuscular HGB Conc 34 g/dl (31-36); Mean Corpuscular Hemoglobin 32 pg (27-31); Mean Corpuscular Volume 94 fL (80-94); Mean Platelet Volume 7 um3 (7.4-10.4); Red Blood Count 2.09 10^6/ul (4.0-5.4); Red Cell Distribution Width 22 % (10.5-15); White Blood Count 3.8 10^3/ul (3.5-10.8)
[2017-08-21 10:05] LABS: Hemoglobin 6.7 g/dl (14.0-18.0)
[2017-08-21] MEDS: Pantoprazole IV* 80 MG in NS 0.9% 250 ML* 250 ML IVPB SCH ×2 (10:17→22:11)
[2017-08-21 10:24] LABS: BUN/Creatinine Ratio 9.1 (8-20); Calcium 7.7 mg/dL (8.6-10.3); EGFR African American 200.4 (>60); EGFR Non-African American 155.8 (>60); Potassium 3.2 mmol/L (3.5-5.0)
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
[2017-08-21] MEDS ORDERED: LORazepam TAB(*) 1 MG PO PRN (21:00)
[2017-08-21] MEDS: Nicotine Patch Removal NOTE PATCH OFF SCH (21:15)
[2017-08-21] MEDS ORDERED: Phytonadione Oral Solution* 5 MG/25 ML UDC PO ONE (21:30)
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
[2017-08-22 02:55] LABS: Urine Bacteria Absent (Absent); Urine Bilirubin Negative (Negative); Urine Glucose Negative (Negative); Urine Nitrite Negative (Negative)
[2017-08-22] MEDS: NS 0.9% 1000 ML* 1,000 ML IV SCH ×3 (03:15→23:35)
[2017-08-22] MEDS: Morphine INJ* 2 MG/ML 1 ML SYRINGE (TWO MG - NEW SYRINGE VERSION) IV PRN ×4 (03:53→21:52)
[2017-08-22 04:17] LABS: Hematocrit 24 % (42-52); Hemoglobin 8.3 g/dl (14.0-18.0); Mean Corpuscular HGB Conc 35 g/dl (31-36); Mean Corpuscular Hemoglobin 32 pg (27-31); Mean Corpuscular Volume 92 fL (80-94); Mean Platelet Volume 7 um3 (7.4-10.4); Red Blood Count 2.59 10^6/ul (4.0-5.4); Red Cell Distribution Width 20 % (10.5-15); White Blood Count 4.4 10^3/ul (3.5-10.8)
[2017-08-22 04:19] LABS: Comments Flag Yes
[2017-08-22 04:30] LABS: Albumin 2.5 g/dL (3.2-5.2); Direct Bilirubin 2.2 mg/dL (0.03-0.18); Globulin 3.3 g/dL (2-4); Indirect Bilirubin 4.1 mg/dL (0.3-1.0); Total Bilirubin 6.3 mg/dL (0.2-1.0); Total Protein 5.8 g/dL (6.4-8.9)
[2017-08-22] MEDS: Folic Acid TAB* 1 MG PO SCH (08:25)
[2017-08-22] MEDS: Multivitamins/Minerals TAB PO SCH (08:25)
[2017-08-22] MEDS: Thiamine TAB* 100 MG TAB PO SCH (08:26)
[2017-08-22] MEDS: Nicotine PATCH 21 MG/24 HR* PATCH TRANSDERM SCH (08:26)
[2017-08-22] MEDS: LORazepam TAB(*) 1 MG PO SCH ×2 (08:26→21:47)
[2017-08-22] MEDS: Pantoprazole IV* 80 MG in NS 0.9% 250 ML* 250 ML IVPB SCH (08:40)
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
[2017-08-22] MEDS: Acetaminophen TAB* 325 MG PO PRN ×2 (13:29→18:28)
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
[2017-08-22] MEDS: Nicotine Patch Removal NOTE PATCH OFF SCH (21:48)
[2017-08-23] MEDS: oxyCODONE TAB* 5 MG TAB PO PRN ×2 (00:09→23:30)
[2017-08-23] MEDS: Acetaminophen TAB* 325 MG PO PRN ×2 (00:10→19:36)
[2017-08-23] MEDS: Morphine INJ* 2 MG/ML 1 ML SYRINGE (TWO MG - NEW SYRINGE VERSION) IV PRN ×3 (01:39→21:06)
[2017-08-23] MEDS: Pantoprazole IV* 80 MG in NS 0.9% 250 ML* 250 ML IVPB SCH ×4 (02:21→20:12)
[2017-08-23] MEDS: LORazepam TAB(*) 1 MG PO SCH ×2 (09:15→21:09)
[2017-08-23] MEDS: Multivitamins/Minerals TAB PO SCH (09:15)
[2017-08-23] MEDS: Nicotine PATCH 21 MG/24 HR* PATCH TRANSDERM SCH (09:15)
[2017-08-23] MEDS: Folic Acid TAB* 1 MG PO SCH (09:15)
[2017-08-23] MEDS: Thiamine TAB* 100 MG TAB PO SCH (09:15)
--- NOTE | 2017-08-23 11:15 | RAD ---
HISTORY: Shortness of breath COMPARISONS: August 20, 2017 VIEWS: 1: frontal portable view of the chest at 10:40 AM FINDINGS: LINES AND TUBES: None. CARDIOMEDIASTINAL SILHOUETTE: The cardiomediastinal silhouette is normal for portable technique. PLEURA: The costophrenic angles are sharp. No pleural abnormalities are noted. LUNG PARENCHYMA: The lung volumes are low. The lungs are clear accounting for the phase of respiration. ABDOMEN: The upper abdomen is clear. There is no subphrenic gas. BONES AND SOFT TISSUES: No bone or soft tissue abnormalities are noted. IMPRESSION: LOW LUNG VOLUMES NO ACTIVE CARDIOPULMONARY DISEASE.
[2017-08-23 12:01] LABS: Calcium 7.5 mg/dL (8.6-10.3); EGFR African American 181.3 (>60); EGFR Non-African American 140.9 (>60)
[2017-08-23] MEDS: NS 0.9% 1000 ML* 1,000 ML IV SCH ×2 (12:18→23:28)
[2017-08-23 13:09] LABS: Hematocrit 23 % (42-52); Hemoglobin 7.9 g/dl (14.0-18.0); Mean Corpuscular HGB Conc 35 g/dl (31-36); Mean Corpuscular Hemoglobin 32 pg (27-31); Mean Corpuscular Volume 93 fL (80-94); Mean Platelet Volume 7 um3 (7.4-10.4); Red Blood Count 2.47 10^6/ul (4.0-5.4); Red Cell Distribution Width 20 % (10.5-15); White Blood Count 6.4 10^3/ul (3.5-10.8)
--- NOTE | 2017-08-23 13:43 | PN ---
Progress Note - Progress Note Date of Service: 08/23/17 SOAP: Subjective: resting comfortably with continued complaints of severe left shoulder pain Objective: Vital Signs Temp Pulse Resp BP Pulse Ox 99.4 F 89 20 116/69 93 08/23/17 08:14 08/23/17 08:14 08/23/17 09:15 08/23/17 08:14 08/23/17 08:14 Laboratory Last Values WBC 6.4 10^3/ul (3.5-10.8) 08/23/17 13:00 RBC 2.47 10^6/ul (4.0-5.4) L 08/23/17 13:00 Hgb 7.9 g/dl (14.0-18.0) L 08/23/17 13:00 Hct 23 % (42-52) L 08/23/17 13:00 MCV 93 fL (80-94) 08/23/17 13:00 MCH 32 pg (27-31) H 08/23/17 13:00 MCHC 35 g/dl (31-36) 08/23/17 13:00 RDW 20 % (10.5-15) H 08/23/17 13:00 Plt Count 110 10^3/ul (150-450) L 08/23/17 13:00 MPV 7 um3 (7.4-10.4) L 08/23/17 13:00 Neut % (Auto) 62.7 % (38-83) 08/23/17 13:00 Lymph % (Auto) 19.2 % (25-47) L 08/23/17 13:00 [place] % (Auto) 14.8 % (1-9) H 08/23/17 13:00 Eos % (Auto) 2.3 % (0-6) 08/23/17 13:00 Baso % (Auto) 1.0 % (0-2) 08/23/17 13:00 Absolute Neuts (auto) 4.0 10^3/ul (1.5-7.7) 08/23/17 13:00 Absolute Lymphs (auto) 1.2 10^3/ul (1.0-4.8) 08/23/17 13:00 Absolute Monos (auto) 0.9 10^3/ul (0-0.8) H 08/23/17 13:00 Absolute Eos (auto) 0.1 10^3/ul (0-0.6) 08/23/17 13:00 Absolute Basos (auto) 0.1 10^3/ul (0-0.2) 08/23/17 13:00 Absolute Nucleated RBC 0.02 10^3/ul 08/23/17 13:00 Nucleated RBC % 0.3 08/23/17 13:00 INR (Anticoag Therapy) 1.51 (0.89-1.11) H 08/22/17 04:00 Sodium 130 mmol/L (133-145) L 08/23/17 10:58 Potassium 3.0 mmol/L (3.5-5.0) L 08/23/17 10:58 Chloride 102 mmol/L (101-111) 08/23/17 10:58 Carbon Dioxide 25 mmol/L (22-32) 08/23/17 10:58 Anion Gap 3 mmol/L (2-11) 08/23/17 10:58 BUN 6 mg/dL (6-24) 08/23/17 10:58 Creatinine 0.60 mg/dL (0.67-1.17) L 08/23/17 10:58 Est GFR ( Amer) 181.3 (>60) 08/23/17 10:58 Est GFR (Non-Af Amer) 140.9 (>60) 08/23/17 10:58 BUN/Creatinine Ratio 10.0 (8-20) 08/23/17 10:58 Glucose 127 mg/dL (70-100) H 08/23/17 10:58 Calcium 7.5 mg/dL (8.6-10.3) L 08/23/17 10:58 Total Bilirubin 6.30 mg/dL (0.2-1.0) H D 08/22/17 04:00 Direct Bilirubin 2.20 mg/dL (0.03-0.18) H 08/22/17 04:00 Indirect Bilirubin 4.1 mg/dL (0.3-1.0) H 08/22/17 04:00 AST 102 U/L (13-39) H 08/22/17 04:00 ALT 27 U/L (7-52) 08/22/17 04:00 Alkaline Phosphatase 70 U/L (34-104) 08/22/17 04:00 Troponin I 0.01 ng/mL (<0.04) 08/20/17 20:10 Total Protein 5.8 g/dL (6.4-8.9) L 08/22/17 04:00 Albumin 2.5 g/dL (3.2-5.2) L 08/22/17 04:00 Globulin 3.3 g/dL (2-4) 08/22/17 04:00 Albumin/Globulin Ratio 0.8 (1-3) L 08/22/17 04:00 Urine Color Michaela 08/22/17 02:35 Urine Appearance Clear 08/22/17 02:35 Urine pH 6.0 (5-9) 08/22/17 02:35 Ur Specific Lolo 1.012 (1.010-1.030) 08/22/17 02:35 Urine Protein Negative (Negative) 08/22/17 02:35 Urine Ketones Negative (Negative) 08/22/17 02:35 Urine Blood Negative (Negative) 08/22/17 02:35 Urine Nitrate Negative (Negative) 08/22/17 02:35 Urine Bilirubin Negative (Negative) 08/22/17 02:35 Urine Urobilinogen Positive (Negative) H 08/22/17 02:35 Ur Leukocyte Esterase Trace (Negative) H 08/22/17 02:35 Urine WBC (Auto) 1+(6-10/hpf) (Absent) H 08/22/17 02:35 Urine RBC (Auto) Trace(0-2/hpf) (Absent) 08/22/17 02:35 Ur Squamous Epith Cells Present (Absent) H 08/22/17 02:35 Urine Bacteria Absent (Absent) 08/22/17 02:35 Urine Glucose Negative (Negative) 08/22/17 02:35 Serum Alcohol 280 mg/dL (<10) H 08/20/17 20:10 Blood Type A Positive 08/20/17 20:10 Antibody Screen Negative 08/20/17 20:10 Crossmatch See Detail 08/20/17 20:10 PE: NVI; chronic wounds left index finger with significant swelling, improved erythema Assessment: 52 yo with non-op clavicle fracture, chronic left index finger wounds Plan: 1) will continue to follow clavicle fracture and index finger chronic wounds 2) hospitalist co-managing
[2017-08-23] MEDS: Nicotine Patch Removal NOTE PATCH OFF SCH (21:11)
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
[2017-08-24] MEDS: Acetaminophen TAB* 325 MG PO PRN (00:25)
[2017-08-24] MEDS: LORazepam TAB(*) 1 MG PO SCH ×4 (00:31→23:59)
[2017-08-24] MEDS: Pantoprazole IV* 80 MG in NS 0.9% 250 ML* 250 ML IVPB SCH ×2 (02:34→04:59)
[2017-08-24 07:13] LABS: Hematocrit 21 % (42-52); Hemoglobin 7.2 g/dl (14.0-18.0); Mean Corpuscular HGB Conc 35 g/dl (31-36); Mean Corpuscular Hemoglobin 32 pg (27-31); Mean Corpuscular Volume 93 fL (80-94); Mean Platelet Volume 7 um3 (7.4-10.4); Red Blood Count 2.23 10^6/ul (4.0-5.4); Red Cell Distribution Width 20 % (10.5-15)
[2017-08-24] MEDS: Multivitamins/Minerals TAB PO SCH (09:07)
[2017-08-24] MEDS: Thiamine TAB* 100 MG TAB PO SCH (09:08)
[2017-08-24] MEDS: oxyCODONE TAB* 5 MG TAB PO PRN ×2 (09:08→17:23)
[2017-08-24] MEDS: Folic Acid TAB* 1 MG PO SCH (09:11)
[2017-08-24] MEDS: Nicotine PATCH 21 MG/24 HR* PATCH TRANSDERM SCH (09:12)
[2017-08-24] MEDS: NS 0.9% 1000 ML* 1,000 ML IV SCH ×2 (10:34→23:07)
--- NOTE | 2017-08-24 11:45 | PN ---
Progress Note - Progress Note Date of Service: 08/24/17 SOAP: Subjective: []Patient seen at bedside, sleepy but arouses to voice. Complains of left shoulder pain when asked. Shoulder immobilizer is donned. Objective: [] Vital Signs Temp 98.3 F 08/24/17 09:37 Pulse 88 08/24/17 09:37 Resp 20 08/24/17 11:08 BP 113/63 08/24/17 09:37 Pulse Ox 96 08/24/17 09:37 Intake & Output 08/23/17 08/24/17 08/24/17 18:59 06:59 18:59 Intake Total 1806 1986 Output Total 300 Balance 1506 1986 Intake: IV Fluids 926 1076 NS (0.9%) 926 1076 Medicated IV 321 GEN - Pantoprazole/ 321 Protonix Oral 880 590 Output: Urine 300 Other: Estimated Void Large # Bowel Movements 0 1 Estimated Stool Amount Medium # Voids 1 Laboratory Results - last 24 hr 08/23/17 08/23/17 08/24/17 10:58 13:00 06:29 WBC 6.4 6.0 RBC 2.47 L 2.23 L Hgb 7.9 L 7.2 L Hct 23 L 21 L MCV 93 93 MCH 32 H 32 H MCHC 35 35 RDW 20 H 20 H Plt Count 110 L 107 L MPV 7 L 7 L Neut % (Auto) 62.7 62.4 Lymph % (Auto) 19.2 L 20.8 L [place] % (Auto) 14.8 H 14.1 H Eos % (Auto) 2.3 2.2 Baso % (Auto) 1.0 0.5 Absolute Neuts (auto) 4.0 3.7 Absolute Lymphs (auto) 1.2 1.2 Absolute Monos (auto) 0.9 H 0.8 Absolute Eos (auto) 0.1 0.1 Absolute Basos (auto) 0.1 0 Absolute Nucleated RBC 0.02 0.01 Nucleated RBC % 0.3 0.1 Sodium 130 L Potassium 3.0 L Chloride 102 Carbon Dioxide 25 Anion Gap 3 BUN 6 Creatinine 0.60 L Est GFR ( Amer) 181.3 Est GFR (Non-Af Amer) 140.9 BUN/Creatinine Ratio 10.0 Glucose 127 H Calcium 7.5 L Left shoulder is moderately swollen and remains tender as expected mild edema left hand and fingers, full sensation multiple small scabs noted on fingers and hand Assessment: []Left clavicle fracture Plan: []Non operative treatment in shoulder immobilizer encourage finger and hand motion to help with swelling in hand and fingers
[2017-08-24] MEDS ORDERED: Iohexol 300* (CONTRAST) 10 ML SDV IV ONE (14:09)
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
--- NOTE | 2017-08-24 15:30 | RAD ---
INDICATION: Abdominal pain and distention. Cirrhosis. COMPARISON: CT abdomen pelvis October 01, 2016 TECHNIQUE: Axial source images were obtained from the hemidiaphragms to the symphysis pubis following administration of oral and intravenous contrast. 91 mL Omnipaque 300 was utilized. Coronal and sagittal reconstructed images were acquired. Lung bases: There are mild consolidative changes in lung bases left greater than right. This could be related to compression atelectasis. Liver: There is cirrhotic liver morphology. The size of the liver has decreased and the heterogeneity identified previously is considerably less conspicuous.. Gallbladder: There are small calcified gallstones Spleen: There is moderate splenomegaly. The spleen measures 15 cm and greatest dimension. Pancreas: There is no focal pancreatic mass or ductal dilatation. Adrenal glands: There is no evidence of adrenal mass. Kidneys: The kidneys are normal in size and position. There are prompt nephrograms and there is prompt excretion bilaterally. There are no renal parenchymal masses. There is no evidence of nephrolithiasis. Adenopathy: There is no evidence of adenopathy by size criteria. Fluid collections: There is moderate ascites with mild progression. Vessels:There are no significant atherosclerotic changes involving the aorta. There is no focal aneurysm. The iliac vessels are normal in caliber. The IVC appears normal. There are multiple collaterals consistent with portosystemic shunting GI tract: There is no obstruction. The upper GI tract is unremarkable. There is mucosal edema throughout the colon which is nonspecific and could be to a primary liver process or to a diffuse colitis in the appropriate setting. Pelvic organs: The prostate and seminal vesicles appear normal Bladder: There are no bladder masses. Abdominal and pelvic soft tissues: There is anasarca. Osseous structures: There are no acute osseous findings. Other: None IMPRESSION: 1. Mild bibasilar consolidative change perhaps related atelectasis. Suggest follow-up chest radiographs as clinically indicated. 2. Cirrhotic liver morphology. There is interval decrease in the size of the liver and the degree of heterogeneity/fatty infiltration. 3. Cholelithiasis. 4. Splenomegaly. 5. Ascites with interval increase in fluid 6. Indeterminate mucosal edema of the colon
[2017-08-24] MEDS ORDERED: Furosemide IV* 10 MG/ML 2 ML VIAL (20 MG) IV ONE (20:30)
[2017-08-24] MEDS: Lactulose* 15 ML UDC PO SCH (20:45)
[2017-08-24] MEDS: Morphine INJ* 2 MG/ML 1 ML SYRINGE (TWO MG - NEW SYRINGE VERSION) IV PRN (20:47)
[2017-08-24] MEDS: Nicotine Patch Removal NOTE PATCH OFF SCH (20:49)
[2017-08-25] MEDS: Acetaminophen TAB* 325 MG PO PRN (00:17)
[2017-08-25] MEDS: Morphine INJ* 2 MG/ML 1 ML SYRINGE (TWO MG - NEW SYRINGE VERSION) IV PRN ×2 (02:38→15:14)
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
[2017-08-25 07:22] LABS: Hematocrit 20 % (42-52); Mean Corpuscular HGB Conc 35 g/dl (31-36); Mean Corpuscular Hemoglobin 33 pg (27-31); Mean Corpuscular Volume 94 fL (80-94); Mean Platelet Volume 7 um3 (7.4-10.4); Red Blood Count 2.14 10^6/ul (4.0-5.4); Red Cell Distribution Width 20 % (10.5-15); White Blood Count 5.1 10^3/ul (3.5-10.8)
[2017-08-25 07:45] LABS: Albumin 2.2 g/dL (3.2-5.2); BUN/Creatinine Ratio 10.2 (8-20); Calcium 7.6 mg/dL (8.6-10.3); EGFR African American 184.8 (>60); EGFR Non-African American 143.7 (>60); Globulin 3.3 g/dL (2-4); Total Bilirubin 4.9 mg/dL (0.2-1.0); Total Protein 5.5 g/dL (6.4-8.9)
[2017-08-25] MEDS: Lactulose* 15 ML UDC PO SCH ×3 (09:50→20:34)
[2017-08-25] MEDS: Multivitamins/Minerals TAB PO SCH (09:51)
[2017-08-25] MEDS: LORazepam TAB(*) 1 MG PO SCH ×2 (10:08→20:33)
[2017-08-25] MEDS: Nicotine PATCH 21 MG/24 HR* PATCH TRANSDERM SCH (10:10)
[2017-08-25] MEDS: Folic Acid TAB* 1 MG PO SCH (10:10)
[2017-08-25] MEDS: Thiamine TAB* 100 MG TAB PO SCH (10:12)
[2017-08-25] MEDS: Spironolactone TAB* 25 MG PO SCH (10:12)
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
[2017-08-25] MEDS: oxyCODONE TAB* 5 MG TAB PO PRN ×3 (17:10→20:33)
[2017-08-25] MEDS: NS 0.9% 1000 ML* 1,000 ML IV SCH (19:15)
[2017-08-25] MEDS: Nicotine Patch Removal NOTE PATCH OFF SCH (20:36)
[2017-08-25] MEDS ORDERED: Phytonadione Oral Solution* 5 MG/25 ML UDC PO ONE (21:24)
[2017-08-25] MEDS ORDERED: Magnesium Sulfate 1 GM IV* 1 GM/100 ML BAG IV ONE (21:27)
[2017-08-25] MEDS: KCL 20 MEQ/100 ML IVPREMIX* 20 MEQ/100 ML BAG IV SCH (22:30)
[2017-08-26] MEDS: KCL 20 MEQ/100 ML IVPREMIX* 20 MEQ/100 ML BAG IV SCH ×2 (00:43→02:46)
[2017-08-26] MEDS: Morphine INJ* 2 MG/ML 1 ML SYRINGE (TWO MG - NEW SYRINGE VERSION) IV PRN (00:44)
[2017-08-26] MEDS: oxyCODONE TAB* 5 MG TAB PO PRN ×5 (02:31→22:15)
[2017-08-26 06:25] LABS: Hematocrit 21 % (42-52); Hemoglobin 7.1 g/dl (14.0-18.0); Mean Corpuscular HGB Conc 34 g/dl (31-36); Mean Corpuscular Hemoglobin 32 pg (27-31); Mean Corpuscular Volume 94 fL (80-94); Mean Platelet Volume 7 um3 (7.4-10.4); Red Blood Count 2.23 10^6/ul (4.0-5.4); Red Cell Distribution Width 20 % (10.5-15); White Blood Count 5.2 10^3/ul (3.5-10.8)
[2017-08-26 06:42] LABS: Albumin 2.4 g/dL (3.2-5.2); BUN/Creatinine Ratio 9.1 (8-20); Calcium 7.8 mg/dL (8.6-10.3); EGFR African American 200.4 (>60); EGFR Non-African American 155.8 (>60); Globulin 3.5 g/dL (2-4); Magnesium 1.5 mg/dL (1.9-2.7); Potassium 3.7 mmol/L (3.5-5.0); Total Bilirubin 4.8 mg/dL (0.2-1.0); Total Protein 5.9 g/dL (6.4-8.9)
[2017-08-26] MEDS: Thiamine TAB* 100 MG TAB PO SCH (08:53)
[2017-08-26] MEDS: Spironolactone TAB* 25 MG PO SCH (08:53)
[2017-08-26] MEDS: Phytonadione Oral Solution* 5 MG/25 ML UDC PO SCH (08:53)
[2017-08-26] MEDS: Lactulose* 15 ML UDC PO SCH ×3 (08:53→22:18)
[2017-08-26] MEDS: Multivitamins/Minerals TAB PO SCH (08:53)
[2017-08-26] MEDS: Magnesium Oxide TAB* 400 MG PO SCH ×2 (08:53→22:15)
[2017-08-26] MEDS: Folic Acid TAB* 1 MG PO SCH (08:53)
[2017-08-26] MEDS: Nicotine PATCH 21 MG/24 HR* PATCH TRANSDERM SCH (08:54)
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
[2017-08-26 10:44] LABS: Iron 31 ug/dL (50-212); Total Iron Binding Capacity 220 mcg/dL (250-450); Transferrin 157 mg/dL (203-362)
[2017-08-26 11:02] LABS: Vitamin B12 1155 pg/mL (180-914)
--- NOTE | 2017-08-26 13:37 | PN ---
Progress Note - Progress Note Date of Service: 08/26/17 SOAP: Subjective: []Patient seen at bedside. He reports 7/10 pain currently, but was just given pain medication for relief. He wears his sling on the left, reporting good sensation of the left upper extremity. Mr. Padilla reports improved function of left hand though he has had limited flexion of his left index finger x 3 months which is unchanged. Objective: [] Vital Signs Temp 99.3 F 08/26/17 11:29 Pulse 103 08/26/17 11:29 Resp 16 08/26/17 12:56 BP 118/71 08/26/17 11:29 Pulse Ox 91 08/26/17 11:29 Intake & Output 08/25/17 08/26/17 08/26/17 18:59 06:59 18:59 Intake Total 1040 1151 374 Output Total 320 500 Balance 720 651 374 Intake: IV Fluids 600 1151 134 NS (0.9%) 600 1151 134 Oral 440 0 240 Output: Urine 320 500 Other: # Bowel Movements 3 0 Estimated Stool Amount Medium Laboratory Last Values WBC 5.2 10^3/ul (3.5-10.8) 08/26/17 05:59 RBC 2.23 10^6/ul (4.0-5.4) L 08/26/17 05:59 Hgb 7.1 g/dl (14.0-18.0) L 08/26/17 05:59 Hct 21 % (42-52) L 08/26/17 05:59 MCV 94 fL (80-94) 08/26/17 05:59 MCH 32 pg (27-31) H 08/26/17 05:59 MCHC 34 g/dl (31-36) 08/26/17 05:59 RDW 20 % (10.5-15) H 08/26/17 05:59 Plt Count 115 10^3/ul (150-450) L 08/26/17 05:59 MPV 7 um3 (7.4-10.4) L 08/26/17 05:59 Neut % (Auto) 60.4 % (38-83) 08/25/17 06:58 Lymph % (Auto) 22.9 % (25-47) L 08/25/17 06:58 [place] % (Auto) 12.6 % (1-9) H 08/25/17 06:58 Eos % (Auto) 3.1 % (0-6) 08/25/17 06:58 Baso % (Auto) 1.0 % (0-2) 08/25/17 06:58 Absolute Neuts (auto) 3.1 10^3/ul (1.5-7.7) 08/25/17 06:58 Absolute Lymphs (auto) 1.2 10^3/ul (1.0-4.8) 08/25/17 06:58 Absolute Monos (auto) 0.6 10^3/ul (0-0.8) 08/25/17 06:58 Absolute Eos (auto) 0.2 10^3/ul (0-0.6) 08/25/17 06:58 Absolute Basos (auto) 0.1 10^3/ul (0-0.2) 08/25/17 06:58 Absolute Nucleated RBC 0 10^3/ul 08/25/17 06:58 Nucleated RBC % 0.1 08/25/17 06:58 INR (Anticoag Therapy) 1.77 (0.89-1.11) H 08/25/17 06:58 Sodium 128 mmol/L (133-145) L 08/26/17 05:59 Potassium 3.7 mmol/L (3.5-5.0) 08/26/17 05:59 Chloride 100 mmol/L (101-111) L 08/26/17 05:59 Carbon Dioxide 23 mmol/L (22-32) 08/26/17 05:59 Anion Gap 5 mmol/L (2-11) 08/26/17 05:59 BUN 5 mg/dL (6-24) L 08/26/17 05:59 Creatinine 0.55 mg/dL (0.67-1.17) L 08/26/17 05:59 Est GFR ( Amer) 200.4 (>60) 08/26/17 05:59 Est GFR (Non-Af Amer) 155.8 (>60) 08/26/17 05:59 BUN/Creatinine Ratio 9.1 (8-20) 08/26/17 05:59 Glucose 118 mg/dL (70-100) H 08/26/17 05:59 Calcium 7.8 mg/dL (8.6-10.3) L 08/26/17 05:59 Magnesium 1.5 mg/dL (1.9-2.7) L 08/26/17 05:59 Iron 31 ug/dL (50-212) L 08/26/17 09:48 TIBC 220 mcg/dL (250-450) L 08/26/17 09:48 % Saturation 14 % (15-55) L 08/26/17 09:48 Unsat Iron Binding 189 ug/dL 08/26/17 09:48 Transferrin Cancelled 08/26/17 05:59 Total Bilirubin 4.80 mg/dL (0.2-1.0) H 08/26/17 05:59 Direct Bilirubin 2.20 mg/dL (0.03-0.18) H 08/22/17 04:00 Indirect Bilirubin 4.1 mg/dL (0.3-1.0) H 08/22/17 04:00 AST 64 U/L (13-39) H 08/26/17 05:59 ALT 21 U/L (7-52) 08/26/17 05:59 Alkaline Phosphatase 76 U/L (34-104) 08/26/17 05:59 Ammonia 57 mol/L (16-53) H 08/24/17 14:20 Troponin I 0.01 ng/mL (<0.04) 08/20/17 20:10 Total Protein 5.9 g/dL (6.4-8.9) L 08/26/17 05:59 Albumin 2.4 g/dL (3.2-5.2) L 08/26/17 05:59 Globulin 3.5 g/dL (2-4) 08/26/17 05:59 Albumin/Globulin Ratio 0.7 (1-3) L 08/26/17 05:59 Vitamin B12 1155 pg/mL (180-914) H 08/26/17 09:48 Urine Color Michaela 08/22/17 02:35 Urine Appearance Clear 08/22/17 02:35 Urine pH 6.0 (5-9) 08/22/17 02:35 Ur Specific [place] 1.012 (1.010-1.030) 08/22/17 02:35 Urine Protein Negative (Negative) 08/22/17 02:35 Urine Ketones Negative (Negative) 08/22/17 02:35 Urine Blood Negative (Negative) 08/22/17 02:35 Urine Nitrate Negative (Negative) 08/22/17 02:35 Urine Bilirubin Negative (Negative) 08/22/17 02:35 Urine Urobilinogen Positive (Negative) H 08/22/17 02:35 Ur Leukocyte Esterase Trace (Negative) H 08/22/17 02:35 Urine WBC (Auto) 1+(6-10/hpf) (Absent) H 08/22/17 02:35 Urine RBC (Auto) Trace(0-2/hpf) (Absent) 08/22/17 02:35 Ur Squamous Epith Cells Present (Absent) H 08/22/17 02:35 Urine Bacteria Absent (Absent) 08/22/17 02:35 Urine Glucose Negative (Negative) 08/22/17 02:35 Serum Alcohol 280 mg/dL (<10) H 08/20/17 20:10 Blood Type A Positive 08/20/17 20:10 Antibody Screen Negative 08/20/17 20:10 Crossmatch See Detail 08/20/17 20:10 General: Patient appears comfortable in bed. No acute distress. Calm and cooperative. Left upper extremity: - ecchymosis over left clavicle and shoulder - Left clavicle tender to light palpation - mild edema of left upper extremity - radial pulse 2+, brisk capillary refill of digits - sensation intact throughout LUE - Digits 1,3,4,5 with good flexion and extension, 2nd digit with limited flexion ( chronic) - multiple small wounds of left hand (chronic) Assessment: [] Nonoperative clavicle fracture Chronic wounds left index finger Plan: [] nonoperative tx left clavicle fracture in sling Encouraged finger movement to reduce swelling
[2017-08-26] MEDS: Acetaminophen TAB* 325 MG PO PRN (22:14)
[2017-08-26] MEDS: Nicotine Inhaler* 10 MG AMP INH PRN (22:19)
[2017-08-26] MEDS: Mouth Piece, Nicotine* 1 EACH CARTRIDGE ONE (22:19)
[2017-08-26] MEDS: Nicotine Patch Removal NOTE PATCH OFF SCH (22:19)
[2017-08-27] MEDS: Nicotine Inhaler* 10 MG AMP INH PRN ×3 (01:33→19:36)
[2017-08-27] MEDS: oxyCODONE TAB* 5 MG TAB PO PRN ×5 (01:34→23:19)
[2017-08-27 08:08] LABS: Hematocrit 21 % (42-52); Hemoglobin 7.1 g/dl (14.0-18.0); Mean Corpuscular HGB Conc 34 g/dl (31-36); Mean Corpuscular Hemoglobin 32 pg (27-31); Mean Corpuscular Volume 95 fL (80-94); Mean Platelet Volume 7 um3 (7.4-10.4); Red Blood Count 2.21 10^6/ul (4.0-5.4); Red Cell Distribution Width 21 % (10.5-15); White Blood Count 4.9 10^3/ul (3.5-10.8)
[2017-08-27 08:09] LABS: Add Diff/Slide Review? Slide Review Added; Comments Flag Yes
[2017-08-27 08:25] LABS: BUN/Creatinine Ratio 7.5 (8-20); Calcium 8.1 mg/dL (8.6-10.3); EGFR African American 209.1 (>60); EGFR Non-African American 162.6 (>60); Potassium 3.4 mmol/L (3.5-5.0)
[2017-08-27] MEDS: Nicotine PATCH 21 MG/24 HR* PATCH TRANSDERM SCH (08:44)
[2017-08-27] MEDS: Phytonadione Oral Solution* 5 MG/25 ML UDC PO SCH (08:44)
[2017-08-27] MEDS: Magnesium Oxide TAB* 400 MG PO SCH ×2 (08:45→19:38)
[2017-08-27] MEDS: Thiamine TAB* 100 MG TAB PO SCH (08:45)
[2017-08-27] MEDS: Folic Acid TAB* 1 MG PO SCH (08:45)
[2017-08-27] MEDS: Multivitamins/Minerals TAB PO SCH (08:45)
[2017-08-27] MEDS: Spironolactone TAB* 25 MG PO SCH (08:45)
[2017-08-27 08:47] LABS: Basophilic Stippling 1+; Hypochromasia 2+; Polychromasia 1+
[2017-08-27] MEDS ORDERED: Furosemide IV* 10 MG/ML 2 ML VIAL (20 MG) IV ONE (08:47)
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
[2017-08-27] MEDS: Omeprazole CAP* 20 MG PO SCH ×2 (09:26→15:53)
[2017-08-27] MEDS: Lactulose* 15 ML UDC PO SCH ×2 (09:26→19:38)
[2017-08-27] MEDS ORDERED: Mouth Piece, Nicotine* 1 EACH CARTRIDGE ONE ×2 (15:51→19:44)
[2017-08-27] MEDS: Nicotine Patch Removal NOTE PATCH OFF SCH (19:40)
[2017-08-27] MEDS: Mouth Piece, Nicotine* 1 EACH CARTRIDGE ONE (19:47)
[2017-08-28] MEDS: oxyCODONE TAB* 5 MG TAB PO PRN ×3 (03:55→11:29)
[2017-08-28 06:21] LABS: Hematocrit 21 % (42-52); Hemoglobin 7.4 g/dl (14.0-18.0); Mean Corpuscular HGB Conc 35 g/dl (31-36); Mean Corpuscular Hemoglobin 32 pg (27-31); Mean Corpuscular Volume 93 fL (80-94); Mean Platelet Volume 7 um3 (7.4-10.4); Red Blood Count 2.32 10^6/ul (4.0-5.4); Red Cell Distribution Width 20 % (10.5-15); White Blood Count 5.9 10^3/ul (3.5-10.8)
[2017-08-28 06:34] LABS: Albumin 2.3 g/dL (3.2-5.2); BUN/Creatinine Ratio 8.2 (8-20); Calcium 7.9 mg/dL (8.6-10.3); Globulin 3.6 g/dL (2-4); Potassium 3.4 mmol/L (3.5-5.0); Total Bilirubin 5.5 mg/dL (0.2-1.0); Total Protein 5.9 g/dL (6.4-8.9)
[2017-08-28 07:53] VITALS: BP 134/70
[2017-08-28] MEDS: Phytonadione Oral Solution* 5 MG/25 ML UDC PO SCH (07:59)
[2017-08-28] MEDS: Nicotine Inhaler* 10 MG AMP INH PRN (08:00)
[2017-08-28] MEDS: Lactulose* 15 ML UDC PO SCH (08:00)
[2017-08-28] MEDS: Multivitamins/Minerals TAB PO SCH (08:01)
[2017-08-28] MEDS: Nicotine PATCH 21 MG/24 HR* PATCH TRANSDERM SCH (08:01)
[2017-08-28] MEDS: Magnesium Oxide TAB* 400 MG PO SCH (08:01)
[2017-08-28] MEDS: Omeprazole CAP* 20 MG PO SCH (08:01)
[2017-08-28] MEDS: Thiamine TAB* 100 MG TAB PO SCH (08:01)
[2017-08-28] MEDS: Folic Acid TAB* 1 MG PO SCH (08:01)
[2017-08-28] MEDS: Spironolactone TAB* 25 MG PO SCH (08:01)
[2017-08-28] MEDS ORDERED: Potassium Chlor TAB* 10 MEQ TAB.ER PO SCH (11:00)
--- NOTE | 2017-08-28 12:29 | PN ---
"Progress Note - Progress Note Date of Service: 08/28/17 Note: Search Terms: Marcos kumar, 1965 Search Date: 08/28/2017 12:28:02 PM The Drug Utilization Report below displays all of the controlled substance prescriptions, if any, that your patient has filled in the last twelve months. The information displayed on this report is compiled from pharmacy submissions to the Department, and accurately reflects the information as submitted by the pharmacies. This report was requested by: Gordon Fox | Reference #: [id number] Others' Prescriptions Patient Name: Marcos Kumar Date: 1965 Address: [address] [place] [address] Sex: Male Rx Written Rx Dispensed Drug Quantity Days Supply Prescriber Name 04/12/2017 Time spent on discharge 55 minutes."
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
[2017-08-29] MEDS ORDERED: Furosemide TAB* 20 MG PO SCH (09:00)
== END 2017-08-28 13:35 | disposition home health service (06) | DRG 342 ==
LOC: ED 19:03 → MED 21:58
PROVIDERS: ADMIT Internal Medicine; ATTEND Internal Medicine
PROC: 0HQ1XZZ Repair Face Skin, External Approach (ICD-10-PCS; principal; 2017-08-20)
PROC: 30233N1 Transfusion of Nonautologous Red Blood Cells into Peripheral Vein, Percutaneous Approach (ICD-10-PCS; 2017-08-20)
DX: S42.032A Displaced fracture of lateral end of left clavicle, initial encounter for closed fracture (principal); K92.0 Hematemesis; K70.11 Alcoholic hepatitis with ascites; D62 Acute posthemorrhagic anemia; S01.81XA Laceration without foreign body of other part of head, initial encounter; E83.2 Disorders of zinc metabolism; D53.9 Nutritional anemia, unspecified; F10.239 Alcohol dependence with withdrawal, unspecified; K92.1 Melena; V23.0XXA Motorcycle driver injured in collision with car, pick-up truck or van in nontraffic accident, initial encounter; Y92.89 Other specified places as the place of occurrence of the external cause; F32.9 Major depressive disorder, single episode, unspecified; F41.9 Anxiety disorder, unspecified; Z82.49 Family history of ischemic heart disease and other diseases of the circulatory system; Z81.1 Family history of alcohol abuse and dependence; Z83.2 Family history of diseases of the blood and blood-forming organs and certain disorders involving the immune mechanism; F17.210 Nicotine dependence, cigarettes, uncomplicated; Z56.0 Unemployment, unspecified; Z87.01 Personal history of pneumonia (recurrent); F41.0 Panic disorder [episodic paroxysmal anxiety]; Z91.5 Personal history of self-harm; Z83.3 Family history of diabetes mellitus; Z81.8 Family history of other mental and behavioral disorders; F11.90 Opioid use, unspecified, uncomplicated; F12.90 Cannabis use, unspecified, uncomplicated; L03.012 Cellulitis of left finger; R53.1 Weakness; R10.9 Unspecified abdominal pain; K70.31 Alcoholic cirrhosis of liver with ascites; K70.40 Alcoholic hepatic failure without coma; E87.6 Hypokalemia; F14.10 Cocaine abuse, uncomplicated; Y90.8 Blood alcohol level of 240 mg/100 ml or more; N50.89 Other specified disorders of the male genital organs; N48.89 Other specified disorders of penis
CPT/HCPCS: 36415; 70450; 70486; 71010; 71020; 72125; 74177; 80048; 80053; 80076; 80320; 81003; 81015; 82140; 82272; 82607; 83540; 83550; 83735; 84484; 85025; 85027; 85610; 86850; 86900; 86901; 86922; 87077; 87086; 87186; 93005; 93306; 94760; A9270-GY; G0480; J1940; J2270; J2405; J3475; J3480; P9040; Q9967